=== PATIENT | female | born 1970 | race Two or more races ===

== ENCOUNTER → 2016-10-07 | Outpatient (CLI) | payer MEDICARE, MEDICAID ==
[~2016-10-07] MED LIST: BUSP10TA PO; DULO60CA7 PO; ESCI20TA10 PO; HYDR-926 PO; HYDR25TA PO; LAMO100T5 PO; LEVO50TA6 PO; METF500T4 PO; METF850T2 PO; OMEP40CA6 PO; PRAV40TA2 PO; QUET200T4 PO
--- NOTE | 2016-10-08 09:04 | DIREP ---
PROCEDURE:US PELVIS COMPLETE COMPARISON:None. INDICATIONS:N92.0 EXCESSIVE AND FREQUENT MENSTRUATION WITH REGULAR CYCLE TECHNIQUE:Pelvic ultrasound using transabdominal technique. Endovaginal images were also obtained for better assessment of the endometrium and adnexa Findings are summarized. FINDINGS: Uterus Uterus Length:10.1 Uterus Height:5.62 cm Uterus Width:6.62 cm Endometrium Thickness:6 mm Ovaries Right Ovary Width:1.50 cm Right Ovary Length:2.00 cm Right Ovary Height:1.10 cm Left Ovary Width:2.57 cm Left Ovary Length:3.69 cm Left Ovary Height:2.18 cm UTERUS:Unremarkable appearance. Incidental note of scattered nabothian cysts. There is a 2.3 x 2.0 x 2.0 cm posterior fundal fibroid. Endometrial thickness is normal. OVARIES:Normal bilateral appearance with no significant masses. Each ovary is normal in size for a patient of this age. There is a simple right ovarian cyst CUL-DE-SAC:Trace free fluid in the cul-de-sac. OTHER:Negative. CONCLUSION: Posterior fundal fibroid. Small volume of free fluid in the cul-de-sac Dictated by: Angela Solano M.D. on 10/08/2016 at 07:55 AM Read in [place]
== END | disposition home or self-care (01) ==
LOC: RAD 15:17
PROVIDERS: ATTEND Hospitalist
DX: D25.9 Leiomyoma of uterus, unspecified (principal)
CPT/HCPCS: 76830; 76856

== ENCOUNTER 2016-10-30 00:48 | Inpatient (IN) | payer MEDICARE, MEDICAID ==
[2016-10-29 11:45] VITALS: BP 114/78
[2016-10-29 12:40] LABS: BASOPHIL % 0.2 % (0.0-0.2); EOSINOPHIL # 0.3 10^3/uL (0.0-0.2); EOSINOPHIL % 3.6 % (0.0-5.0); HEMATOCRIT 35.1 % (36.0-46.0); HEMOGLOBIN 11.1 g/dL (12.0-15.0); LYMPHOCYTES # 2.2 10^3/uL (1.0-4.8); LYMPHOCYTES % 27.5 % (24.0-44.0); MEAN CELL HGB 25.2 pg (26-34); MEAN CELL HGB CONCENTRATION 31.6 g/dL (33-37); MEAN CORP VOLUME 79.6 fL (78-100); MEAN PLATELET VOLUME 7.9 fL (7.8-11.0); MONOCYTES # 0.5 10^3/uL (0.3-0.8); MONOCYTES % 6.7 % (5.0-12.0); NEUTROPHILS % 61.8 % (41.0-85.0); RED CELL DISTRIBUTION WIDTH 18.9 % (11.5-14.5)
[2016-10-29 13:02] LABS: BILIRUBIN,URINE NEGATIVE (NEGATIVE); UROBILINOGEN,URINE NORMAL (NEGATIVE)
[2016-10-29 13:11] LABS: APPEARANCE,URINE CLEAR (CLEAR); UA COLOR STRAW (YELLOW)
[2016-10-29 13:42] LABS: CARBON DIOXIDE 26.6 mmol/L (20.0-32)
[~2016-10-30] VITALS: Ht 162.6 cm; Wt 93.0 kg
[2016-10-30] VITALS (19 sets, daily range): BP systolic 87–117; BP diastolic 51–75
[~2016-10-30 00:48] MED LIST changes: +HYDR-3101 PO; +HYDR25CA PO; +LAMO200T3 PO; +LEVAQUIN 100 ML IV ONE; +LIRA0.6P2 SQ; +LURA40TA PO
[2016-10-30] MEDS ORDERED: LACTATED RINGERS 1,000 ML ONE ×2 (05:07→17:54)
[2016-10-30] MEDS ORDERED: LEVAQUIN 100 ML IV ONE ×2 (05:07→10:00)
[2016-10-30] MEDS ORDERED: ROCEPHIN ONE (05:08)
[2016-10-30] MEDS ORDERED: NS 100ML 100 ML IV ONE (05:09)
[2016-10-30] MEDS ORDERED: NS 1000ML 1,000 ML IV ONE (06:00)
[2016-10-30] MEDS ORDERED: ROCEPHIN 1,000 MG in NS 100ML 100 ML IV ONE (06:00)
[2016-10-30] MEDS ORDERED: NS 1000ML 1,000 ML ONE ×3 (06:14→10:11)
[2016-10-30] MEDS ORDERED: SODIUM CHLORIDE IR ONE (07:00)
[2016-10-30] MEDS ORDERED: ZEMURON IV ONE (07:07)
[2016-10-30] MEDS ORDERED: VERSED ONE (07:08)
[2016-10-30] MEDS ORDERED: ZOFRAN ONE (07:08)
[2016-10-30] MEDS ORDERED: DIPRIVAN IV ONE (07:09)
[2016-10-30] MEDS ORDERED: SUBLIMAZE ONE ×2 (07:09)
[2016-10-30] MEDS ORDERED: TORADOL ONE ×3 (07:10→21:49)
[2016-10-30] MEDS ORDERED: ASTRAMORPH-PF ONE (07:28)
[2016-10-30] MEDS ORDERED: ZOFRAN IV ONE (07:30)
[2016-10-30] MEDS ORDERED: NARCAN IV PRN (07:30)
[2016-10-30] MEDS ORDERED: SUBLIMAZE IV PRN (07:30)
[2016-10-30] MEDS ORDERED: NORCO 5 MG PO PRN (07:30)
[2016-10-30] MEDS ORDERED: EPHEDRINE SULFATE IV PRN (07:30)
[2016-10-30] MEDS ORDERED: ZOFRAN IV PRN ×2 (07:30→10:00)
[2016-10-30] MEDS ORDERED: TORADOL IV ONE (07:30)
[2016-10-30] MEDS ORDERED: BENADRYL IV PRN (07:30)
[2016-10-30] MEDS ORDERED: DEMEROL IV PRN ×2 (07:30→10:00)
[2016-10-30] MEDS ORDERED: NS IV PRN (07:30)
[2016-10-30] MEDS ORDERED: NUBAIN IV PRN (07:30)
[2016-10-30] MEDS ORDERED: DILAUDID IV PRN (10:00)
[2016-10-30] MEDS ORDERED: TYLENOL PO PRN (10:00)
[2016-10-30] MEDS ORDERED: MYLICON PO PRN (10:00)
[2016-10-30] MEDS ORDERED: ZOFRAN ODT SL PRN (10:00)
[2016-10-30] MEDS ORDERED: PHENERGAN IV PRN (10:00)
[2016-10-30] MEDS ORDERED: MILK OF MAGNESIA PO PRN (10:00)
[2016-10-30] MEDS ORDERED: NORCO 7.5MG PO PRN ×2 (10:00)
[2016-10-30] MEDS ORDERED: PHENERGAN PO PRN (10:00)
--- NOTE | 2016-10-30 10:04 | PRM.OPH ---
Immediate Post Op Note Summary of Operation Date: Oct 30, 2016 Time: 09:59 Pre-Operative DX: MENORRHAGIA, PELVIC PAIN, MULT MEDICAL PROBLEMS, FAILED ENDOMETRIAL ABLATIO Post-OP DX: SAME Anesth.Used: SPINAL + GETA Indications: TOTAL ABDOMINAL HYSTERECTOMY, BILATERAL SALPINGO-OOPHORECTOMY Physician's Summary: Enlargened, boggy, smoothly contoured uterus without any subserosal fibroids; ovaries small bilaterally; Fallopian tubes bilaterally with evidence of prior tubal ligation; thick bulky cervix Assistants: Listed Assisting Physicians PAVAN MUHAMMAD MD, NELLY KOHLER VETERINARY TECHNOLOGIST, OPHELIA RUTH CST Anesthesiologist/HYDROELECTRIC PLANT MECHANICAL ENGINEER BERNARD NORTON CRNA Specimen(s) Removed: List Specimen: UTERUS/CERVIX WITH BILATERAL ADNEXA (EN BLOC SPECIMEN) Estimated Blood Loss: EBL/ESTIMATED BLOOD LOSS: (MIL: 250 Complications: Complications: NONE Assessment & Plan: Update Surgical HX/Problems: (1) Status post ABNER-BSO Assessment & Plan: Routine post-op care. Pt has a Prevena wound vac dressing in place. KATHARINE GARY MD Oct 30, 2016 10:04
--- NOTE | 2016-10-30 10:45 | NUR ---
RECEIVED PT RECEIVED FROM PACU, AWAKE AND ALERT, ASSESSMENT COMPLETED, IV INFUSING PER PUMP IN RIGHT HAND WITHOUT DIFFICULTY, SCD'S IN PLACE BILATERALLY AND WORKING, PREVENA WOUND VAC IN PLACE, NO DRAINAGE NOTED, DENIES NEEDS AT THIS TIME,
--- NOTE | 2016-10-30 11:30 | NUR ---
STATUS SITTING UP IN BED, VISITING WITH FAMILY, DENIES NEEDS AT THIS TIME, COMFORTABLE AT THIS TIME
--- NOTE | 2016-10-30 12:00 | NUR ---
DIET PT SERVED CLEAR LIQUID DIET, CONSUMED 100% OF DIET AND TOLERATED. NO N/V NOTED
--- NOTE | 2016-10-30 13:00 | NUR ---
DR ABDIRAHMAN GARY IN TO SEE PT AND DISCUSS POC, QUESTIONS ANSWERED.
[2016-10-30] MEDS: TORADOL IV SCH ×2 (15:04→21:54)
--- NOTE | 2016-10-30 15:04 | NUR ---
PT RESTING QUIETLY IN BED. DENIES COMPLAINTS. TORADOL IV GIVEN. SEE EMAR.
[2016-10-30] MEDS: NOVOLOG SQ SCH ×2 (17:00→21:00)
--- NOTE | 2016-10-30 17:00 | NUR ---
status SITTING UP IN BED, SERVED REGULAR DIET, DENIES NEEDS AT THIS TIME
--- NOTE | 2016-10-30 17:53 | NUR ---
STATUS PT CONSUMED 100% OF REGULAR DIET NO N/V NOTED
[2016-10-30] MEDS: LACTATED RINGERS 1,000 ML IV SCH (17:55)
--- NOTE | 2016-10-30 18:45 | NUR ---
report Report received from Kaia ARZATE, Assumed care of patient
--- NOTE | 2016-10-30 19:15 | NUR ---
Assessment Assessment initiated
[2016-10-30] MEDS ORDERED: BENADRYL PO ONE (20:14)
[2016-10-30] MEDS ORDERED: BENADRYL ONE (20:16)
[2016-10-30] MEDS: BENADRYL IV PRN (20:18)
--- NOTE | 2016-10-30 21:20 | NUR ---
itching patient complained of itching, Benadryl given as ordered
--- NOTE | 2016-10-30 21:40 | NUR ---
Blood Glucose BG obtained at 125, no medication needed at this time per sliding scale
--- NOTE | 2016-10-30 21:54 | NUR ---
Tordol Scheduled Tordol 30mg given, no needs at this time
[2016-10-31 00:15] VITALS: BP 91/48
--- NOTE | 2016-10-31 00:15 | NUR ---
vs obtained denies needs or pain at this time
--- NOTE | 2016-10-31 01:00 | NUR ---
Dr Bedoya phoned Patient unable to sleep, New medication order received
[2016-10-31] MEDS ORDERED: PHENERGAN ONE (01:28)
[2016-10-31] MEDS ORDERED: ATARAX ONE ×2 (01:28→22:19)
[2016-10-31] MEDS ORDERED: BENADRYL ONE (01:33)
[2016-10-31] MEDS ORDERED: ATARAX PO ONE (01:57)
--- NOTE | 2016-10-31 02:00 | NUR ---
Medications given Phenergan 25mg given for Nausea Benadryl 25mg given for itching Hydroxyzine 25mg given for sleep, see emar
[2016-10-31] MEDS: BENADRYL IV PRN (02:03)
[2016-10-31] MEDS ORDERED: LACTATED RINGERS 1,000 ML ONE (02:25)
[2016-10-31] MEDS: LACTATED RINGERS 1,000 ML IV SCH (02:29)
--- NOTE | 2016-10-31 02:30 | NUR ---
New Bag of LR infusing without difficulty, iv site without s/s of infiltration
--- NOTE | 2016-10-31 03:16 | NUR ---
sleeping sleeping in low fowlers, resp even and nonlabored, call light in reach
--- NOTE | 2016-10-31 05:00 | NUR ---
lab her for blood draw
[2016-10-31] MEDS ORDERED: TORADOL ONE (05:08)
[2016-10-31] MEDS: TORADOL IV SCH (05:13)
[2016-10-31 05:30] VITALS: BP 95/52
--- NOTE | 2016-10-31 05:30 | NUR ---
patient care vs obtained, diaz removed with 1800cc of clear yellow urine, teaching given on using hat for first void Rocephin hung and infusing as ordered Last dose scheduled Tordol given Pericare done and assisted with pad and panties IS teaching given and patient return demonstrated proper use. encouraged to ambulate today.
[2016-10-31 05:44] LABS: BASOPHIL % 0.1 % (0.0-0.2); EOSINOPHIL # 0.1 10^3/uL (0.0-0.2); EOSINOPHIL % 1.6 % (0.0-5.0); HEMATOCRIT 29.4 % (36.0-46.0); HEMOGLOBIN 9.1 g/dL (12.0-15.0); LYMPHOCYTES % 14.6 % (24.0-44.0); MEAN CELL HGB 24.9 pg (26-34); MEAN CORP VOLUME 80.5 fL (78-100); MEAN PLATELET VOLUME 7.8 fL (7.8-11.0); MONOCYTES # 0.5 10^3/uL (0.3-0.8); MONOCYTES % 6.9 % (5.0-12.0); NEUTROPHIL # 5.2 10^3/uL (1.8-7.7); NEUTROPHILS % 76.7 % (41.0-85.0); RED CELL DISTRIBUTION WIDTH 19.2 % (11.5-14.5); WHITE BLOOD CELL 6.8 10^3/uL (4.5-11.0)
[2016-10-31] MEDS ORDERED: ROCEPHIN 1,000 MG in NS 100ML 100 ML IV ONE (06:00)
[2016-10-31 06:10] LABS: CALCIUM 7.4 mg/dL (8.4-10.5); CARBON DIOXIDE 23.8 mmol/L (20.0-32)
--- NOTE | 2016-10-31 07:00 | NUR ---
REPORT RECEIVED REPORT ASSUMED CARE, LAYING IN BED WATCHING TV, NO DISTRESS NOTED, DENIES NEEDS, SIDE RAILS UP X 2, CALL LIGHT IN REACH.
--- NOTE | 2016-10-31 07:35 | NUR ---
BATHROOM UP TO BATHROOM ASSIST X 1, UNABLE TO VOID AT THIS TIME, DRU CARE PER SELF, AMBULATED TO CHAIR. NO DISTRESS NOTED. DENIES NEEDS, CALL LIGHT IN REACH.
[2016-10-31 07:45] VITALS: BP 93/59
--- NOTE | 2016-10-31 07:45 | NUR ---
ASSESSMENT ASSESSMENT COMPLETE CHARTED, SEE FLOW SHEET.
[2016-10-31] MEDS: NOVOLOG SQ SCH ×4 (07:47→21:00)
[2016-10-31] MEDS ORDERED: MOTRIN ONE ×2 (08:13→16:30)
[2016-10-31] MEDS: MOTRIN PO PRN ×2 (08:16→16:35)
--- NOTE | 2016-10-31 09:48 | NUR ---
SHOWER/VOID UP TO BATHROOM, VOIDED 300 ML WITHOUT DIFFICULTY, DRU CARE PER SELF, IV SALINE LOCKED, UP TO SHOWER, INSTRUCTED ON USE OF EMERGENCY LIGHT, VERBALIZES UNDERSTANDING, IV WRAPPED, LINENS CHANGED.
[2016-10-31 12:00] VITALS: BP 95/55
--- NOTE | 2016-10-31 12:00 | NUR ---
ACTIVITY LAYING IN BED WATCHING TV, NO DISTRESS NOTED, VS OBTAINED, DENIES NEEDS, LUNCH TRAY SERVED, SIDE RAILS UP X 2, CALL LIGHT IN REACH.
--- NOTE | 2016-10-31 13:20 | NUR ---
AMBULATION UP AMBULATING IN HALLWAY, NO DISTRESS NOTED.
--- NOTE | 2016-10-31 13:31 | NUR ---
ROOM BACK TO BED, SCD'S IN PLACE AND WORKING, NO DISTRESS NOTED, DENIES NEEDS, SIDE RAILS UP X 2, CALL LIGHT IN REACH.
[2016-10-31 16:17] VITALS: BP 106/64
--- NOTE | 2016-10-31 16:17 | NUR ---
ACTIVITY LAYING IN BED WATCHING TV, NO DISTRESS NOTED, VS OBTAINED, SIDE RAILS UP X 2, CALL LIGHT IN REACH.
--- NOTE | 2016-10-31 18:18 | NUR ---
DR. ABDIRAHMAN GARY AT BEDSIDE DISCUSSING PLAN OF CARE.
--- NOTE | 2016-10-31 19:00 | PRM.DC ---
Discharge Summary Date of Arrival on Unit: Oct 29, 2016 Reason for Visit: HERE FOR ABNER/BSO Additional Comments Nikki is a 46yo Hisp female who underwent a Total Abdominal Hysterectomy and Bilateral Salpingo-oophorectomy on 10/29/2016 without complication. Blood loss was only 250cc's. Post-op course was unremarkable. She will be discharged home tomorrow Friday11/01/2016 in stable condition. Patient History: Anxiety disorder G8 BROTHER Chronic obstructive pulmonary disease 33 FATHER Diabetes mellitus 32 MOTHER, , Age:42 33 FATHER PATERNAL GRANDMOTHER, FH: bipolar disorder 32 MOTHER, , Age:42 G8 BROTHER 19 CHILD FH: colon cancer PATERNAL GRANDMOTHER, FH: schizophrenia G8 BROTHER FHx: manic depression 19 CHILD Hypertension 33 FATHER No known health problems G8 BROTHER G8 BROTHER 19 CHILD History Present Illness: General: Alert HEENT: Atraumatic Neck: Supple Lungs: Clear to auscultation Heart: Regular rate Abdomen: Normal bowel sounds, Other (Prevena wound vac working well) Extremities: No clubbing Skin: No rashes Neuro: Normal gait Psych/Mental Status: Mental status NL Scheduled Escitalopram Oxalate (Lexapro) 1 TAB PO DAILY (Reported) Hydrocodone Bit/Acetaminophen ([place] 7.5-325) 1 TAB PO Q6 (Reported) Hydroxyzine Hcl (Hydroxyzine Hcl) 1 TAB PO QID (Reported) Hydroxyzine Pamoate (Vistaril) 1 CAP PO Q6 (Reported) Lamotrigine (Lamictal) 1 TAB PO HS (Reported) Levothyroxine Sodium (Levothyroxine Sodium) 1 TAB PO DAILY (Reported) Liraglutide (Victoza 3-Santo) 1.2 MG SQ DAILY (Reported) Lurasidone Hcl (Latuda) 1 TAB PO HS (Reported) Metformin Hcl (Metformin Hcl) 1 TAB PO BID (Reported) Pravastatin Sodium (Pravastatin Sodium) 1 TAB PO HS (Reported) Discontinued Medications Hydrocodone Bit/Acetaminophen ([place] 5-325 Tablet) 1 EACH PO Q6HR PRN PRN PAIN 5 - 7 Discontinued Reason: Discontinue Lamotrigine (Lamictal) 1 TAB PO HS (Reported) Discontinued Reason: Discontinue Omeprazole (Omeprazole) 1 CAP PO DAILY (Reported) Discontinued Reason: Discontinue Quetiapine Fumarate (Seroquel) 1 TAB PO HS (Reported) Discontinued Reason: Discontinue Course Blood Pressure Systolic: 106 Blood Pressure Diastolic: 64 Blood Pressure Mean: 78 Plan Problems: (1) Status post ABNER-BSO Status: Acute ICD Code: Z90.710 SNOMED: [id number] Discharge Date: Nov 01, 2016 Dicharge DX: S/P ABNER/BSO Discharge Disposition: Stable Plan D/C home tomorrow Friday11/01/2016 KTAHARINE GARY MD Oct 31, 2016 19:00
--- NOTE | 2016-10-31 19:15 | NUR ---
REPORT Report received - Transfer of patient care. Patient lying in bed resting.
[2016-10-31] MEDS ORDERED: NORCO 7.5MG PO ONE (19:40)
[2016-10-31 20:03] VITALS: BP 104/65
[2016-10-31] MEDS ORDERED: BENADRYL PO ONE (22:19)
[2016-10-31] MEDS ORDERED: ATARAX PO STA (22:22)
--- NOTE | 2016-10-31 22:22 | NUR ---
Sleeping Med Patient requested medication to help her sleep - request the same medication as last night - 25 mg Benadryl given and 25 mg Atarax.
--- NOTE | 2016-11-01 00:44 | NUR ---
STATUS PT RESTING QUIETLY WITH EYES CLOSED, RESPIRATIONS EVEN AND UNLABORED, COLOR NORMAL FOR RACE, NO DISTRESS NOTED, PT TOOK SLEEPING MEDS, WILL NOT DISTURB AT THIS TIME. WILL CONTINUE TO MONITOR.
--- NOTE | 2016-11-01 02:04 | NUR ---
STATUS PT REMAINS IN BED, RESTING WITH EYES CLOSED, NO DISTRESS NOTED, WILL CONTINUE TO MONITOR.
[2016-11-01 04:48] VITALS: BP 105/70
--- NOTE | 2016-11-01 04:49 | NUR ---
STATUS PT LAYING SEMI FOWLERS IN BED, WATCHING TV, DENIES ANY NEEDS AT THIS TIME. CALL LIGHT WITHIN REACH.
[2016-11-01 07:00] VITALS: BP 116/75
--- NOTE | 2016-11-01 07:00 | NUR ---
BS AND VS TAKEN BS 98. VS AND FOOT DOCTOR COMPLETED.
[2016-11-01] MEDS ORDERED: NORCO 7.5MG PO ONE (07:12)
--- NOTE | 2016-11-01 07:20 | NUR ---
PAIN MED GIVEN NORCO 7.5 ONE PO GIVEN FOR PAIN 8/10.
[2016-11-01] MEDS: NOVOLOG SQ SCH ×2 (07:30→12:00)
--- NOTE | 2016-11-01 07:30 | NUR ---
BKF TRAY SERVED. ICE WATER SERVED.
[2016-11-01 09:29] VITALS: BP 116/75
--- NOTE | 2016-11-01 10:30 | NUR ---
DISCHARGE INSTRUCTIONS GIVEN VOICES UNDERSTANDING. ALL QUESTIONS ANSWERED. WILL RESUME ALL HOME MEDS AND ALREADY HAS NORCO RX AT HOME. WILL WAIT FOR FAMILY TO COME TO PICK HER UP. DENIES PAIN OR NEEDS AT THIS TIME.
--- NOTE | 2016-11-01 12:00 | NUR ---
STATUS PT WAITING FOR RIDE HOME. BS CHECK IS DUE. 128. NO ACTION NEEDED. LUNCH SERVED. DENIES PAIN OR NEEDS.
[2016-11-01] MEDS ORDERED: BENADRYL PO SCH (21:00)
== END 2016-11-01 13:02 | disposition home or self-care (01) | DRG 743 ==
LOC: LND 00:48
PROVIDERS: ADMIT Hospitalist; ATTEND Hospitalist
PROC: 0UTC0ZZ Resection of Cervix, Open Approach (ICD-10-PCS; 2016-10-30)
PROC: 0UT20ZZ Resection of Bilateral Ovaries, Open Approach (ICD-10-PCS; 2016-10-30)
PROC: 0UT70ZZ Resection of Bilateral Fallopian Tubes, Open Approach (ICD-10-PCS; 2016-10-30)
PROC: 0UT90ZZ Resection of Uterus, Open Approach (ICD-10-PCS; principal; 2016-10-30 07:30)
DX: N92.0 Excessive and frequent menstruation with regular cycle (principal); R10.2 Pelvic and perineal pain; Z82.5 Family history of asthma and other chronic lower respiratory diseases; Z83.3 Family history of diabetes mellitus; Z81.8 Family history of other mental and behavioral disorders; Z84.89 Family history of other specified conditions; Z79.899 Other long term (current) drug therapy
CPT/HCPCS: 36415; 80053; 81002; 82948; 83036; 84439; 84443; 84481; 84703; 85025; 85610; 85730; 86900; 93005; A4338; J0696; J1200; J1885; J1956; J2250; J2405; J2550; J3010; J3490; J7030; J7120; Q0163; 81025; J2274

== ENCOUNTER → 2017-01-21 | Outpatient (CLI) | payer MEDICARE, MEDICAID ==
[~2017-01-21] VITALS: Ht 162.6 cm; Wt 93.0 kg
[~2017-01-21] MED LIST changes: -LEVAQUIN 100 ML IV ONE; +LEXISCAN IV ONE
--- NOTE | 2017-01-23 09:41 | ECHO ---
INDICATION: A 47-year-old lady with chest pain, elected for an echocardiographic study. FINDINGS: 1. Study quality was good. 2. Sinus rhythm. 3. LV function preserved around 60%. LV dimension normal at 3.3 cm end- diastolic dimension. No visible masses or clots. No visible wall motion abnormality. 4. RV size and EF were normal. 5. Trace pulmonic insufficiency noted. 6. Mitral valve examination showed no evidence of regurgitation, no stenosis. Diastolic parameters by Doppler signal exam were normal. Mitral valve mean gradient by Doppler exam was 1.1 mmHg. 7. Mild tricuspid regurgitation. Pulmonary artery systolic pressure was 25 mmHg. 8. Prominent pericardial fat pad was noted with trace amount of pericardial effusion, no tamponade. 9. Aortic valve showed mild regurgitation. No significant aortic stenosis. Doppler signal exam across the aortic valve estimated a mean velocity of 0.8 m/ sec. Normal with an aortic valve area ____ noted to be around 4 cm2. 10. Inferior vena cava was not visualized. 11. Septal thickness 1 cm. Pamela Bui MD,[facility]ERIC TD: 01/22/2017 21:48 CLAUS
--- NOTE | 2017-01-24 15:07 | STRESS ---
PROCEDURE: Stress test with nuclear imaging study. INDICATION: A 47-year-old lady with typical symptoms of chest pain and shortness of breath, new-onset symptoms. The patient has a strong family history of coronary artery disease. She had history of diabetes mellitus and hyperlipidemia. The patient presented to the stress lab in a fasting condition and signed a proper consent. Baseline blood pressure was 110/84, heart rate of 84. EKG showed sinus rhythm with low voltage QRS complexes, otherwise no ischemia. The patient was injected with 0.4 mg of regadenoson followed by the stress dose of technetium sestamibi. One minute post infusion, blood pressure was 95/72, heart rate of 145, sinus tachycardia. The patient developed symptoms of dizziness, but no chest pain, no shortness of breath. EKG changes of ischemia were partially noted during the tachycardic phase of the hemodynamic response. Five-minute post infusion, blood pressure was 108/73 , heart rate of 99, ischemic changes on the EKG result, the patient remained asymptomatic. Myocardial perfusion imaging study was performed using technetium sestamibi in same day rest stress protocol showing the followin. Study quality was fair. 2. Attenuation artifact corrected. 3. Prone position was available. 4. Myocardial LV cavity was stable, no evidence of TID. 5. SPECT perfusion images showed homogenous tracer distribution among the different myocardial segments. No perfusion defects of ischemia or scarring noted. 6. Gated function study showed normal wall motion with thickening, EF was 70%, stroke volume 31 mL. Small area of anterior wall dyskinesia was seen. IMPRESSION: 1. Abnormal EKG finding on the stress portion of Lexiscan with tachycardia and ST changes ischemia. 2. The patient remained asymptomatic, no chest pain or shortness of breath. 3. Recovery phase was uneventful. 4. No arrhythmia seen. 5. Myocardial perfusion study was normal. No perfusion defect of ischemia or scarring. 6. Gated function study showed mild anterior wall dyskinesia, otherwise normal EF at 70% with no other wall motion abnormality. 7. Given the abnormality on the EKG during the stress portion, clinical correlation is recommended, otherwise, the stress test shows low risk features. Pamela Bui MD,[facility] CAR[facility]/DARNELL TD: 01/24/2017 14:02 [facility]CHESTERDorothy
== END | disposition home or self-care (01) ==
LOC: RAD 09:47
PROVIDERS: ATTEND Internal Medicine
DX: I08.2 Rheumatic disorders of both aortic and tricuspid valves (principal); I31.3 Pericardial effusion (noninflammatory); J98.4 Other disorders of lung
CPT/HCPCS: 78452; 93017; 93307; A9500; J2785

== ENCOUNTER 2017-02-24 10:31 | Inpatient (IN) | payer MEDICARE, MEDICAID ==
[~2017-02-24] VITALS: Ht 162.6 cm; Wt 88.5 kg
--- NOTE | 2017-02-24 10:00 | NUR ---
ARRIVAL PT ARRIVED TO [facility] 311 AT THIS TIME. DIRECT ADMIT FROM DR. PABLO OFFICE
[2017-02-24 10:30] VITALS: BP 109/79
--- NOTE | 2017-02-24 10:30 | NUR ---
ASSESSMENT ASSESSMENT COMPLETE AT THIS TIME. PT SITTING UP IN BED. DENIES ANY PAIN OR DISCOMFORT. LUNGS CTA. RESPIRATIONS EVEN AND NONLABORED. ABD SOFT AND NONDISTENDED. BOWEL SOUNDS ACTIVE X4. NO SWELLING NOTED TO BLE. RADIAL AND PEDAL PULSES PRESENT AND WNL. ALL NEEDS MET. CALL LIGHT WITHIN REACH.
[~2017-02-24 10:31] MED LIST changes: -LEXISCAN IV ONE
[2017-02-24] MEDS ORDERED: AMBIEN PO PRN (11:00)
[2017-02-24] MEDS ORDERED: ZOFRAN IV PRN (11:00)
--- NOTE | 2017-02-24 11:39 | PRM.ACF1 ---
Date and Time Date and Time Time: 11:12 Admission Criteria Forms Patient is a 47-year-old female who had Myranda/Echo last week with dizziness and near-syncope on stress test. History of NIDDM, hyperlipidemia, bipolar and depression, and a "heart valve problem" (NOS), She reports that over the weekend, she was awakened both nights from sleep with a chest pain, which she indicates is upper midsternal with radiation to the right arm and jaw. She described this as "cramping" with tingling in her right hand. She reports nausea but no vomiting at that time. At this time, patient also states she has not had a bowel movement for "over a week." On direct admission from Dr. Crystal's office this morning, the patient is alert, oriented, supine on bed. She reports similar cramping-like pain to upper midsternal area and right shoulder, slight nausea. States the pain is made worse on her palpating the area. Reports slight shortness of breath but no dyspnea. Admitted to Room 311. Nurse started IV saline lock, left forearm. EKG performed showing NSR with low amplitude. Lab in room to draw. Admission vitals: T 97.9 , 109/79, 109, 93% on room air. Per Dr. Crystal, patient is to have heart catheterization 02/25/17. ARCENIO SEQUEIRA NP Feb 24, 2017 11:39
[2017-02-24 11:58] LABS: ALANINE AMINOTRANSFERASE 14 U/L (12-78); ALKALINE PHOSPHATASE 91 U/L (50-136); ASPARTATE AMINO TRANSFERASE 15 U/L (0-35); CALCIUM 9.2 mg/dL (8.4-10.5); CARBON DIOXIDE 26.1 mmol/L (20.0-32); GLUCOSE 94 mg/dL (70-110)
--- NOTE | 2017-02-24 13:32 | PRM.PN ---
Subjective Subjective Patient History: Anxiety disorder G8 BROTHER Chronic obstructive pulmonary disease 33 FATHER Diabetes mellitus 32 MOTHER, , Age:42 33 FATHER PATERNAL GRANDMOTHER, FH: bipolar disorder 32 MOTHER, , Age:42 G8 BROTHER 19 CHILD FH: colon cancer PATERNAL GRANDMOTHER, FH: schizophrenia G8 BROTHER FHx: manic depression 19 CHILD Hypertension 33 FATHER No known health problems G8 BROTHER G8 BROTHER 19 CHILD VTE VTE Risk Total Score: 3 VTE Risk Score VTE Risk: Score 0-1 = Low Risk (Aggressive mobilization; early ambulation; no VTE prophylaxis required) Score 2: Moderate Risk (Intermittent/Pneumatic Compression Device OR Lovenox/Heparin/Coumadin) Score 3-4: High Risk (Intermittent/Pneumatic Compression Device AND Lovenox/Heparin/Coumadin) Score > or =5: Highest Risk (Intermittent/Pneumatic Compression Device AND Lovenox/Heparin/Coumadin) Review of Systems Constitutional: Sweats Eyes: No: Pain, Vision change, Conjunctivae inflammation, Eyelid inflammation, Other, Redness ENT: No: Ear pain, Ear discharge, Nose pain, Nose discharge, Nose congestion, Mouth pain, Mouth swelling, Throat pain, Throat swelling, Other Respiratory: Shortness of breath, No: Cough, Dry, SOB with excertion, Wheezing , Hemoptysis, Pleuritic Pain, Sputum, Wheezing, Other Cardiovascular: Chest Pain, Lt Headedness Gastrointestinal: Nausea Genitourinary: Dysuria Musculoskeletal: No: other, neck pain, shoulder pain, arm pain, back pain, hand pain, leg pain, foot pain Skin: No: Rash, Lesions, Jaundice, Bruising, Other Other Allergies: Coded Allergies: No Known Allergies (Unverified , 10/29/16) Scheduled Escitalopram Oxalate (Lexapro), 1 TAB PO DAILY, (Reported) Hydrocodone Bit/Acetaminophen ([place] 7.5-325), 1 TAB PO Q6, (Reported) Hydroxyzine Pamoate (Vistaril), 1 CAP PO Q6, (Reported) Lamotrigine (Lamictal), 1 TAB PO HS, (Reported) Levothyroxine Sodium (Levothyroxine Sodium), 1 TAB PO DAILY, (Reported) Liraglutide ([place]ictoza 3-Santo), 1.2 MG SQ DAILY, (Reported) Lurasidone Hcl (Latuda), 1 TAB PO HS, (Reported) Metformin Hcl (Metformin Hcl), 1 TAB PO BID, (Reported) Pravastatin Sodium (Pravastatin Sodium), 1 TAB PO HS, (Reported) Objective Vitals and I/O Vital Sign - Last 24 Hours 02/24/17 10:30 Temp 97.9 Pulse 83 Resp 18 B/P (MAP) 109/79 (89) Pulse Ox 93 Medication Reconciliation Scheduled Escitalopram Oxalate (Lexapro), 1 TAB PO DAILY, (Reported) Hydrocodone Bit/Acetaminophen ([place] 7.5-325), 1 TAB PO Q6, (Reported) Hydroxyzine Pamoate (Vistaril), 1 CAP PO Q6, (Reported) Lamotrigine (Lamictal), 1 TAB PO HS, (Reported) Levothyroxine Sodium (Levothyroxine Sodium), 1 TAB PO DAILY, (Reported) Liraglutide ([place]ictoza 3-Santo), 1.2 MG SQ DAILY, (Reported) Lurasidone Hcl (Latuda), 1 TAB PO HS, (Reported) Metformin Hcl (Metformin Hcl), 1 TAB PO BID, (Reported) Pravastatin Sodium (Pravastatin Sodium), 1 TAB PO HS, (Reported) Assessment/Plan Assessment/Plan Patient History: Anxiety disorder G8 BROTHER Chronic obstructive pulmonary disease 33 FATHER Diabetes mellitus 32 MOTHER, , Age:42 33 FATHER PATERNAL GRANDMOTHER, FH: bipolar disorder 32 MOTHER, , Age:42 G8 BROTHER 19 CHILD FH: colon cancer PATERNAL GRANDMOTHER, FH: schizophrenia G8 BROTHER FHx: manic depression 19 CHILD Hypertension 33 FATHER No known health problems G8 BROTHER G8 BROTHER 19 CHILD History of Present Illness Reason for Consultation: Abnormal stress test History of Present Illness C: Patient had stress test several weeks prior with dizziness and near-syncope during test. She also reports in office that she has had episodes of midsternal chest pain with radiation to left shoulder and left neck area, some diaphoresis and nausea, tingling in left hand. Two nights, this pain woke her in sleep. She also reports some shortness of breath but no dyspnea at that time. On arrival to Med/Surg 311, she reports having midsternal chest pain that she describes as "cramping, pressure" without indication of radiation, and without diaphoresis or nausea. H: Patient has a history of bipolar depression, NIDDM, hyperlipidemia, hypothyroidism. Past Medical History Cardiovascular: CAD GI: Constipation Psychiatric: Anxiety, Depression Rheumatologic: Fibromyalgia Endocrine: Diabetes Past Surgical History: Cholecystectomy, Other Past Social History Smoke: Quit Alcohol: none Drugs: None Domestic Violence: Neg Health Maintenance: Cholesteral Travel Hx EBOLA RISK:Travel to/contact w: No Is pt experiencing any Ebola s: No ARCENIO SEQUEIRA NP Feb 24, 2017 13:32
[2017-02-24] MEDS: NOVOLIN R SUBCUT SCH ×2 (14:17→19:01)
[2017-02-24] MEDS ORDERED: COLACE PO STA (14:20)
[2017-02-24] MEDS: COLACE PO SCH ×2 (14:30→20:39)
[2017-02-24] MEDS: NS 1000ML 1,000 ML IV SCH ×2 (14:52→22:42)
[2017-02-24 16:30] VITALS: BP 92/58
[2017-02-24] MEDS ORDERED: NORCO 7.5MG PO SCH (18:00)
[2017-02-24] MEDS ORDERED: ATARAX PO PRN (18:00)
--- NOTE | 2017-02-24 18:45 | NUR ---
REPORT REPORT GIVEN TO ONCOMING SHIFT AND CARE RELINQUISHED
[2017-02-24 19:40] VITALS: BP 87/57
--- NOTE | 2017-02-24 20:23 | NUR ---
orco 7.5/325 po x1 given for pain 01/20
[2017-02-24] MEDS ORDERED: NORCO 7.5MG PO PRN (20:30)
[2017-02-24] MEDS: LOVENOX SQ SCH (20:39)
[2017-02-24] MEDS ORDERED: LAMICTAL PO SCH (21:00)
[2017-02-24] MEDS ORDERED: LIPITOR PO SCH (21:00)
[2017-02-25 01:59] VITALS: BP 103/65
[2017-02-25 03:51] VITALS: BP 90/52
[2017-02-25] MEDS ORDERED: SYNTHROID PO SCH (06:30)
--- NOTE | 2017-02-25 06:41 | NUR ---
REPORT RECEIVED REPORT FROM NATALI GIBSON LVN ASSUMED CARE OF PATIENT
[2017-02-25] MEDS ORDERED: SUBLIMAZE ONE (06:44)
[2017-02-25] MEDS ORDERED: CALAN ONE (06:44)
[2017-02-25] MEDS ORDERED: HEPARIN ONE (06:44)
[2017-02-25] MEDS ORDERED: XYLOCAINE ONE (06:45)
[2017-02-25] MEDS ORDERED: NITROGLYCERIN 25MG/D5W 250ML 250 ML IV ONE (06:45)
[2017-02-25] MEDS ORDERED: VERSED ONE (06:45)
[2017-02-25] MEDS: NOVOLIN R SUBCUT SCH ×2 (08:00→12:00)
[2017-02-25] MEDS ORDERED: PROTONIX PO SCH (09:00)
[2017-02-25] MEDS ORDERED: CELEXA PO SCH (09:00)
[2017-02-25] MEDS: COLACE PO SCH (09:08)
[2017-02-25] MEDS: LOVENOX SQ SCH (09:08)
[2017-02-25 09:11] VITALS: BP 106/73
--- NOTE | 2017-02-25 10:55 | PRM.PN ---
Progress Note Subjective Date: Feb 25, 2017 Time: 10:15 Physician Notes: Consent for heart cath obtained, explaining risks, benefits, and general procedure to patient. She had no questions, although her father did ask about access and time involved. His phone number added to face sheet of chart. Objective Review IO, Exams,& Results Vital Signs Date Time Temp Pulse Resp B/P (MAP) Pulse Ox O2 Delivery O2 Flow Rate FiO2 02/25/17 09:54 Room Air 02/25/17 09:11 97.5 79 18 106/73 (84) 98 Intake and Output 02/25/17 07:00 Intake Total 1180 ml Output Total 450 ml Balance 730 ml Intake Oral 1180 ml Output Urine Total 450 ml # Voids 4 Laboratory Tests Test 02/24/17 11:20 02/24/17 17:05 02/24/17 23:00 Sodium Level 138 mmol/L Potassium Level 3.9 mmol/L Chloride Level 103.0 mmol/L Carbon Dioxide Level 26.1 mmol/L Anion Gap 12.8 Blood Urea Nitrogen 6 mg/dL Creatinine 0.90 mg/dL Estimated GFR () 81.9 BUN/Creatinine Ratio 6.0 Glucose Level 94 mg/dL Calcium Level 9.2 mg/dL Total Bilirubin 0.3 mg/dL Aspartate Amino Transf (AST/SGOT) 15 U/L Alanine Aminotransferase (ALT/SGPT) 14 U/L Alkaline Phosphatase 91 U/L Creatine Kinase MB 0.0 ng/mL 0.0 ng/mL 0.0 ng/mL Troponin I < 0.02 ng/mL < 0.02 ng/mL < 0.02 ng/mL Total Protein 7.3 g/dL Albumin 3.7 g/dL Globulin 3.6 Current Medications Medications (Trade) Dose Ordered Sig/Drake PRN Reason Start Time Stop Time Status Last Admin Acetaminophen/ Hydrocodone Bitart ([place] 7.5mg) 1 each Q6HR PRN PAIN 02/24/17 20:30 03/26/17 20:29 02/24/17 20:23 Atorvastatin Calcium (Lipitor) 20 mg HS 02/24/17 21:00 03/26/17 20:59 02/24/17 20:39 Citalopram Hydrobromide (Celexa) 40 mg DAILY 02/25/17 09:00 03/27/17 08:59 02/25/17 09:08 Docusate Sodium (Colace) 100 mg BID 02/24/17 14:30 03/26/17 14:29 02/25/17 09:08 Enoxaparin Sodium (Lovenox) 80 mg BID 02/24/17 21:00 03/26/17 20:59 02/25/17 09:08 Hydroxyzine HCl (Atarax) 25 mg Q6 PRN 02/24/17 18:00 03/26/17 17:59 Insulin Human Regular (Novolin R) Y TIDM 02/24/17 12:00 03/26/17 11:59 Lamotrigine (Lamictal) 200 mg HS 02/24/17 21:00 03/26/17 20:59 02/24/17 20:39 Levothyroxine Sodium (Synthroid) 50 mcg ACB 02/25/17 06:30 03/27/17 06:29 Magnesium Citrate (Magnesium Citrate) 300 ml OT 02/25/17 16:00 03/27/17 15:59 Ondansetron HCl (Zofran) 4 mg Q4H PRN NAUSEA / VOMITING 02/24/17 11:00 03/26/17 10:59 Pantoprazole Sodium (Protonix) 40 mg DAILY 02/25/17 09:00 03/27/17 08:59 02/25/17 09:07 Sodium Chloride 1,000 ml @ 80 mls/hr [id number] 02/24/17 11:00 03/26/17 10:59 02/24/17 22:42 Zolpidem Tartrate (Ambien) 10 mg HS PRN INSOMNIA 02/24/17 11:00 03/26/17 10:59 Orders - ARCENIO SEQUEIRA NP Docusate Sodium (Colace) (02/24/17 14:30) Magnesium Citrate (Magnesium Citrate) (02/25/17 16:00) Heart: Regular rate Abdomen: Normal bowel sounds, Other Lungs: Clear to auscultation Assessment & Plan: Plan Plan to proceed with heart cath as consented. ARCENIO SEQUEIRA NP Feb 25, 2017 10:55
--- NOTE | 2017-02-25 11:22 | NUR ---
DISCHARGE PLANNING: SS VISITED WITH PT REGARDING DISCHARGE PLANNING. PT LIVES HOME WITH HER SON. PT STATED SHE IS DISABLED AND ON DISABILITY. PT DOES NOT USE ANY DME, BUT WOULD LIKE TO HAVE HH COME IN AND ASSIST WITH HH CARE NEEDS, AND FINDING A PROVIDER TO COME IN AND ASSIST WITH CHORES AROUND THE HOME SHE IS UNABLE TO DO. CHOICE LETTER, PRESENTED, SIGNED AND PLACED INTO PT'S CHART FOR [facility]. SS NOTIFIED JUAN M WITH [facility] REGARDING REFERRAL. NO FURTHER NEEDS NOTED OR IDENTIFIED AT THIS TIME. PT SAFETY HANDOUT ADDRESSED, NO QUESTIONS ASKED, UNDERSTANDING VERBALIZED. SS TO CONTINUE TO FOLLOW AND MONITOR DISCHARGE PLANNING NEEDS.
[2017-02-25] MEDS ORDERED: NS FLUSH ONE (11:57)
[2017-02-25] MEDS: NS 1000ML 1,000 ML IV SCH (12:00)
[2017-02-25] MEDS ORDERED: NORCO 5 MG PO PRN (13:30)
[2017-02-25] MEDS ORDERED: NS 1000ML 1,000 ML IV SCH (13:30)
--- NOTE | 2017-02-25 15:46 | PRM.DC ---
Discharge Summary Date of Arrival on Unit: Feb 24, 2017 Reason for Visit: Coronary artery disease Additional Comments 47-year-old lady with multiple coronary arteries factors including hypertension , hyperlipidemia, diabetes mellitus, has been experiencing symptoms of near syncope and angina. She had an abnormal stress test performed in December 2016. Was admitted with progressive angina symptoms and multiple episodes of near syncope specially after adjustment of blood pressure medications. Coronary angiography was performed for obstructive disease especially with abnormal stress test performed successfully on 02/25/2017via right radial artery access showing no obstructive disease, with. normal ejection fraction. Post cardiac cath recovery phase was uneventful. Patient was indicated results of coronary angiography and adjusted on medical management Patient History: Anxiety disorder G8 BROTHER Chronic obstructive pulmonary disease 33 FATHER Diabetes mellitus 32 MOTHER, , Age:42 33 FATHER PATERNAL GRANDMOTHER, FH: bipolar disorder 32 MOTHER, , Age:42 G8 BROTHER 19 CHILD FH: colon cancer PATERNAL GRANDMOTHER, FH: schizophrenia G8 BROTHER FHx: manic depression 19 CHILD Hypertension 33 FATHER No known health problems G8 BROTHER G8 BROTHER 19 CHILD History Present Illness: General: Alert HEENT: Atraumatic Neck: Supple Lungs: Clear to auscultation Heart: Regular rate Abdomen: Normal bowel sounds Extremities: No clubbing, No cyanosis ( right radial artery access site was free of complications) Skin: No rashes Scheduled Escitalopram Oxalate (Lexapro), 1 TAB PO DAILY, (Reported) Hydrocodone Bit/Acetaminophen ([place] 7.5-325), 1 TAB PO Q6, (Reported) Hydroxyzine Pamoate (Vistaril), 1 CAP PO Q6, (Reported) Lamotrigine (Lamictal), 1 TAB PO HS, (Reported) Levothyroxine Sodium (Levothyroxine Sodium), 1 TAB PO DAILY, (Reported) Liraglutide (Victoza 3-Santo), 1.2 MG SQ DAILY, (Reported) Lurasidone Hcl (Latuda), 1 TAB PO HS, (Reported) Metformin Hcl (Metformin Hcl), 1 TAB PO BID, (Reported) Pravastatin Sodium (Pravastatin Sodium), 1 TAB PO HS, (Reported) Sepsis Evaluation @ Discharge Course Blood Pressure Systolic: 106 Blood Pressure Diastolic: 73 Blood Pressure Mean: 84 Plan Assessment - abnormal stress test - angina pectoris, no obstructive CAD noted on Cath - diabetes mellitus - hypertension - hyperlipidemia - coronary angiography performed on 02/25/2017 showed normal coronaries, free of obstructive disease. - normal ejection fraction Discharge Disposition: Stable Plan - continue all medications - optimize risk factor control - cardiac cath discharge instructions - TR band protocol - outpatient follow-up with PCP and cardiology ROMINA PABLO MD Feb 25, 2017 15:46
[2017-02-25] MEDS ORDERED: MAGNESIUM CITRATE PO SCH (16:00)
--- NOTE | 2017-02-25 18:27 | [facility] ---
DATE OF SERVICE: 02/25/2017 PROCEDURES PERFORMED: 1. Left heart catheterization via right radial artery access. 2. Selective coronary angiography, left and right. COMPLICATIONS: None. BLOOD LOSS: Minimal, less than 15 mL. INDICATIONS: 1. Abnormal stress test performed on 01/21/2017. 2. Active angina symptoms. 3. Multiple risk factors for coronary artery disease including diabetes mellitus and hypertension. 4. Family history of coronary artery disease. 5. Atypical symptoms of presentation including near syncope and significant dizziness. HISTORY OF PRESENT ILLNESS: The patient is a 47-year-old diabetic lady with hypertension, hyperlipidemia, family history of coronary artery disease. She was examined due to progressive symptoms of angina and near syncope on 01/21/2017 with a stress test that showed abnormal stress portion with ST changes of ischemia. The patient reports worsening symptoms. Therefore, she was admitted to manage unstable angina with abnormal stress test. DESCRIPTION OF PROCEDURE: Proper consent was obtained. Risks and benefits were explained. All questions were answered. Lab results were reviewed including negative cardiac enzymes. Therefore, the patient was taken to the [facility] for coronary angiography. Right wrist area was prepped and draped and sterilized with accordance to the normal protocol followed by advancing a 6-Tajik sheath to the right radial artery without difficulty. A 6-Tajik Phenix catheter was utilized to engage the left coronary system and JL4 was the guide of choice to engage the RCA. No LV gram was performed. After careful examination of coronary angiography, case was concluded with removal of wires and catheters and application of 6-Tajik TR band in the right radial artery access site for hemostasis. The patient tolerated the procedure well and left the [facility] in stable condition without complications. I have explained the details of the coronary angiography and angiographic findings to the patient. HEMODYNAMICS: Opening pressure of 106/70, mean of 80 mmHg. ANGIOGRAPHIC FINDINGS: Coronary angiography: 1. Left main is a short vessel, free of disease, normal in diameter. 2. LAD is tortuous vessel with minimal luminal irregularity in the distal segment, otherwise free of disease. The first diagonal branch is a small, tortuous vessel, second and third are very small vessels, diagonals. 3. The circumflex artery is a medium size nondominant vessel, free of disease, gives rise to multiple small obtuse marginal branches, which are free of disease as well. 4. RCA is a large dominant vessel, free of disease, mildly tortuous, tapers down distally into small RPDA and PLV branches, which are dominant in distribution and free of disease. IMPRESSION: 1. Normal left main. 2. Dominant RCA, free of disease, normal in size. 3. Minimal luminal irregularity in the distal LAD. 4. Small nondominant circumflex artery. 5. The procedure was well tolerated without complications. RECOMMENDATIONS: 1. TR band protocol. 2. Optimize risk factor modification for coronary artery disease. 3. Consider noncoronary causes for chest pain and angina. 4. Optimize management of hypertension. 5. Okay for same day discharge to follow up as an outpatient once other comorbidities has been treated successfully. Pamela Bui MD DR: PAUL/cathy JOB# [id number]
--- NOTE | 2017-02-26 08:34 | NUR ---
[facility]: SS FAXED OVER UPDATED DISCHARGE PAPER WORK AND LET [facility] KNOW SHE WAS DISCHARGED YESTERDAY. JONI STATED THEY WOULD GET PT SET UP TODAY
== END 2017-02-25 16:46 | disposition home health service (06) | DRG 287 ==
LOC: MS 10:31
PROVIDERS: ADMIT Internal Medicine; ATTEND Internal Medicine
PROC: 4A023N7 Measurement of Cardiac Sampling and Pressure, Left Heart, Percutaneous Approach (ICD-10-PCS; principal; 2017-02-25)
PROC: B2111ZZ Fluoroscopy of Multiple Coronary Arteries using Low Osmolar Contrast (ICD-10-PCS; 2017-02-25)
DX: I25.110 Atherosclerotic heart disease of native coronary artery with unstable angina pectoris (principal); I10 Essential (primary) hypertension; E03.9 Hypothyroidism, unspecified; F31.9 Bipolar disorder, unspecified; E11.9 Type 2 diabetes mellitus without complications; E78.5 Hyperlipidemia, unspecified; F41.9 Anxiety disorder, unspecified; M79.7 Fibromyalgia; R55 Syncope and collapse; Z82.49 Family history of ischemic heart disease and other diseases of the circulatory system; Z90.49 Acquired absence of other specified parts of digestive tract; Z79.84 Long term (current) use of oral hypoglycemic drugs; Z87.891 Personal history of nicotine dependence; Z83.3 Family history of diabetes mellitus; Z82.5 Family history of asthma and other chronic lower respiratory diseases; Z80.8 Family history of malignant neoplasm of other organs or systems; Z81.8 Family history of other mental and behavioral disorders
CPT/HCPCS: 36415; 80053; 82553; 82948; 84484; 93005; 93454; 99152; 99153; C1769; C1887; C1894; J1644; J1650; J2250; J3010; J3490; J7030; Q9967

== ENCOUNTER 2017-07-08 16:35 | Emergency (ER) | payer MEDICARE, MEDICAID ==
[~2017-07-08] VITALS: Ht 162.6 cm; Wt 71.7 kg
--- NOTE | 2017-07-08 16:49 | NUR ---
ARRIVAL PT ARRIVED AMBULATORY TO ER 5 C/O "DIFFICULTY SWALLOWING" FOR 1 MONTH. PT STATES WAS SEEN BY URGENT CARE LAST WEEK AND TESTED NEGATIVE FOR STREP AND TOLD TO FOLLOW UP WITH HER PRIMARY CARE PROVIDER SCHEDULED ON 07/17/17. NO ACUTE DISTRESS NOTED. EDP NOTIFIED OF PT ARRIVAL.
--- NOTE | 2017-07-08 18:06 | ER.PDOC ---
General Chief Complaint: Sore Throat Stated Complaint: DIFFICULTIES SWALLOWING TRAVEL OUT OF US: No Time seen by MD: 17:27 Source: patient Exam Limitations: no limitations History of Present Illness Initial Comments sore throat Timing/Duration: changing over time Severity: mild Associated Symptoms: denies symptoms Allergies: Coded Allergies: No Known Allergies (Unverified , 10/29/16) Home Meds Reported Medications Lurasidone Hcl (LATUDA) 40 Mg Tablet, 1 TAB PO HS, #30 TAB 1 Refill 10/29/16 Liraglutide (VICTOZA 3-SAUL) 0.6 Mg/0.1 Ml Pen.injctr, 1.2 MG SQ DAILY, #9 MILLILITER 3 Refills 10/29/16 Hydrocodone Bit/Acetaminophen (NORCO 7.5-325) 1 Each Tablet, 1 TAB PO Q6, #120 TAB 10/29/16 Hydroxyzine Pamoate (VISTARIL) 25 Mg Capsule, 1 CAP PO Q6, #60 CAP 1 Refill 10/29/16 Lamotrigine (LAMICTAL) 200 Mg Tablet, 1 TAB PO HS, #30 TAB 1 Refill 10/29/16 Pravastatin Sodium (PRAVASTATIN SODIUM) 40 Mg Tablet, 1 TAB PO HS, #90 TAB 1 Refill 10/19/15 Levothyroxine Sodium (LEVOTHYROXINE SODIUM) 50 Mcg Tablet, 1 TAB PO DAILY, #30 TAB 5 Refills 10/19/15 Metformin Hcl (METFORMIN HCL) 850 Mg Tablet, 1 TAB PO BID, #60 TAB 5 Refills 10/19/15 Escitalopram Oxalate (LEXAPRO) 20 Mg Tablet, 1 TAB PO DAILY, #90 TAB 3 Refills 10/19/15 Past Medical History Medical History: diabetes, high cholesterol, thyroid disease Surgical History: cholecystectomy, hysterectomy LMP (females 10-50): hysterectomy Family History Significant Family History: no pertinent family hx Social History Smoking: quit greater than 1 year Alcohol Use: none Drug Use: none Review of Systems EENTM: throat pain All Other Systems: Reviewed and Negative Physical Exam General Appearance: No Apparent Distress, WD/WN EENT: eyes nml inspection, nml ENT inspection Neck: Non-Tender Respiratory: lungs clear CVS: reg rate & rhythm Back: Normal Inspection, No CVA Tenderness Extremities: Normal Range of Motion 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
[2017-07-08 18:22] VITALS: BP 128/83
== END 2017-07-08 18:16 | disposition home or self-care (01) ==
LOC: ER 16:35
DX: R13.10 Dysphagia, unspecified (principal); E11.9 Type 2 diabetes mellitus without complications; E78.00 Pure hypercholesterolemia, unspecified; E07.9 Disorder of thyroid, unspecified; F17.210 Nicotine dependence, cigarettes, uncomplicated; Z90.49 Acquired absence of other specified parts of digestive tract; Z90.710 Acquired absence of both cervix and uterus; Z79.4 Long term (current) use of insulin; Z79.899 Other long term (current) drug therapy
CPT/HCPCS: 87070; 87880; 99284

== ENCOUNTER → 2017-07-18 | Outpatient (CLI) | payer MEDICARE, MEDICAID ==
--- NOTE | 2017-07-18 17:27 | DIREP ---
PROCEDURE:US THYROID TECHNIQUE:Thyroid ultrasound was performed with a high-frequency transducer. COMPARISON:None. INDICATIONS:E04.9 NONTOXIC GOITER THYROID OVERVIEW Right lobe - size: 3.6 x 1.0 x 1.5 cm, heterogeneous, 0 nodules Isthmus - size: 0.5 cm, heterogeneous, 0 nodules Left lobe - size: 1.2 x 0.4 x 0.4 cm, heterogeneous, 0 nodules THYROID NODULES -- No Reportable Nodules -- TI-RADS: 1 = Benign, 2 = Not Suspicious, 3 = Mildly Suspicious, 4 = Moderately Suspicious, 5 = Highly Suspicious Reference: 2017 JACR, ACR Thyroid Imaging, Reporting and Data System (TIRADS): White Paper of the ACR TI-RADS Committee. OTHER:A small portion of the left lobe is visualized after being surgically removed. CONCLUSION: 1. Based on TI-RADS criteria, no FNA or additional follow-up is required. 2. Remnant of left thyroid lobe following surgery. Dictated by: RUDYA Physician on 07/18/2017 at 04:16 PM brian
== END | disposition home or self-care (01) ==
LOC: RAD 15:41
PROVIDERS: ATTEND Nurse Practitioner Family
DX: E04.9 Nontoxic goiter, unspecified (principal)
CPT/HCPCS: 76536

== ENCOUNTER → 2017-08-07 | Outpatient (CLI) | payer MEDICARE, MEDICAID ==
--- NOTE | 2017-08-07 12:43 | DIREP ---
PROCEDURE:XR BARIUM SWALLOW - MODIFIED COMPARISON:None. INDICATIONS: Dysphagia TECHNIQUE:A comprehensive fluoroscopic examination of swallowing was performed, utilizing a variety of barium consistencies. FINDINGS: ORAL PHASE:Normal. PHARYNGEAL PHASE:Normal. ASPIRATION:No penetration or aspiration was observed with all barium consistencies. OTHER:Negative. FLUORO TIME: 1.4 minutes NUMBER OF IMAGES: 1 CONCLUSION:Normal study. Please also refer to speech pathology report. Dictated by: John Joyner M.D. on 08/07/2017 at 12:45 PM
== END | disposition home or self-care (01) ==
LOC: RAD 11:29
PROVIDERS: ATTEND Nurse Practitioner Family
DX: E04.9 Nontoxic goiter, unspecified (principal); R13.10 Dysphagia, unspecified; R68.89 Other general symptoms and signs
CPT/HCPCS: 74230; 92611; G8996; G8997; G8998

== ENCOUNTER 2017-10-02 21:27 | Emergency (ER) | payer MEDICARE, OTHER ==
[~2017-10-02] VITALS: Ht 162.6 cm; Wt 69.4 kg
[2017-10-02 22:05] VITALS: BP 157/105
--- NOTE | 2017-10-02 22:06 | NUR ---
ARRIVAL PATIENT TO ROOM 5, AMBULATORY. PATIENT STATES SHE HAS HAD VOMITTING TODAY, A COUGH X2 WEEKS THAT HAS NOT GOTTEN BETTER WITH ANTIBIOTICS AND LEFT LEG EDEMA, ALONG WITH PAINFUL INSPIRATION. PATIENT HAS NO PERTINENT MEDICAL HISTORY BUT DOES STATE SHE IS BIPOLAR. ASSESSMENT COMPLETED, AWAITING MD JORDAN AT THIS TIME.
[2017-10-02] MEDS ORDERED: ZOFRAN ODT ONE (23:45)
--- NOTE | 2017-10-02 23:50 | NUR ---
Orthostatic BPs taken, reported findings to Dr. Sánchez. Laying BP 92/59 HR 120, Sitting BP 110/62 HR 134, Standing 84/52 HR 150. New orders received.
--- NOTE | 2017-10-02 23:52 | ER.PDOC ---
General Chief Complaint: Nausea,Vomiting,Diarrhea Stated Complaint: VOMITING Time seen by MD: 23:50 Source: patient Exam Limitations: no limitations History of Present Illness Initial Comments 47 year old white female with nausea, vomiting and diarrhea since early this afternoon. A son has vomiting last week. No fever, not in pain. Severity/Quality: moderate Abdominal Pain Onset Location: Epigastric Associated Symptoms (vomiting): freq vomitng Allergies: Coded Allergies: No Known Allergies (Unverified , 10/29/16) Home Meds Reported Medications Lurasidone Hcl (LATUDA) 40 Mg Tablet, 1 TAB PO HS, #30 TAB 1 Refill 10/29/16 Liraglutide (VICTOZA 3-SAUL) 0.6 Mg/0.1 Ml Pen.injctr, 1.2 MG SQ DAILY, #9 MILLILITER 3 Refills 10/29/16 Hydrocodone Bit/Acetaminophen (NORCO 7.5-325) 1 Each Tablet, 1 TAB PO Q6, #120 TAB 10/29/16 Hydroxyzine Pamoate (VISTARIL) 25 Mg Capsule, 1 CAP PO Q6, #60 CAP 1 Refill 10/29/16 Lamotrigine (LAMICTAL) 200 Mg Tablet, 1 TAB PO HS, #30 TAB 1 Refill 10/29/16 Pravastatin Sodium (PRAVASTATIN SODIUM) 40 Mg Tablet, 1 TAB PO HS, #90 TAB 1 Refill 10/19/15 Levothyroxine Sodium (LEVOTHYROXINE SODIUM) 50 Mcg Tablet, 1 TAB PO DAILY, #30 TAB 5 Refills 10/19/15 Metformin Hcl (METFORMIN HCL) 850 Mg Tablet, 1 TAB PO BID, #60 TAB 5 Refills 10/19/15 Escitalopram Oxalate (LEXAPRO) 20 Mg Tablet, 1 TAB PO DAILY, #90 TAB 3 Refills 10/19/15 Vital Signs First Vital Signs Date Time Temp Pulse Resp B/P (MAP) Pulse Ox O2 Delivery O2 Flow Rate FiO2 10/02/17 21:59 98.3 89 20 98 10/02/17 22:05 157/105 (122) Room Air Last Vital Signs Date Time Temp Pulse Resp B/P (MAP) Pulse Ox O2 Delivery O2 Flow Rate FiO2 10/02/17 22:05 98.3 89 20 157/105 (122) 98 Room Air Past Medical History Medical History: diabetes Surgical History: cholecystectomy, hysterectomy LMP (females 10-50): hysterectomy Social History Smoking: non-smoker Alcohol Use: none Drug Use: none Constitutional: malaise EENTM: no symptoms reported Respiratory: no symptoms reported Cardiovascular: no symptoms reported Gastrointestinal: see HPI Genitourinary: no symptoms reported Musculoskeletal: no symptoms reported Skin: no symptoms reported Psychiatric/Neurological: no symptoms reported Endocrine: no symptoms reported Hematologic/Lymphatic: no symptoms reported Physical Exam General Appearance: No Apparent Distress HEENT: PERRL/EOMI, Normal ENT Inspection, TMs Normal, Pharynx Normal, Other ( dry mucosa) Neck: Non-Tender, Full Range of Motion, Supple, Normal Inspection Respiratory: chest non-tender, lungs clear, normal breath sounds, no respiratory distress, no accessory muscle use Cardiovascular: Normal Peripheral Pulses, Regular Rate, Rhythm, No Edema, No Gallop, No JVD, No Murmur Gastrointestinal: Normal Bowel Sounds, Non Tender, Soft Back: Normal Inspection, No CVA Tenderness, No Vertebral Tenderness Extremities: Normal Range of Motion, Non-Tender, Normal Inspection, No Pedal Edema, No Calf Tenderness, Normal Capillary Refill, Pelvis Stable Neurologic/Psychiatric: drawing box tender II-XII NML as Tested, No Motor/Sensory Deficits, Alert, Normal Mood/Affect, Oriented x 3 Skin: Normal Color, Warm/Dry Lymphatic: No Adenopathy Results/Orders Results/Orders Laboratory Tests Test 10/03/17 00:08 White Blood Count 7.6 10^3/uL (4.5-11.0) Red Blood Count 4.40 10^6/uL (4.00-5.20) Hemoglobin 12.6 g/dL (12.0-15.0) Hematocrit 39.7 % (36.0-46.0) Mean Corpuscular Volume 90.2 fL (78-100) Mean Corpuscular Hemoglobin 28.6 pg (26-34) Mean Corpuscular Hemoglobin Concent 31.7 g/dL (33-37) Red Cell Distribution Width 14.6 % (11.5-14.5) Platelet Count 309 10^3/uL (150-400) Mean Platelet Volume 8.2 fL (7.8-11.0) Neutrophils (%) (Auto) 87.2 % (41.0-85.0) Lymphocytes (%) (Auto) 7.1 % (24.0-44.0) Monocytes (%) (Auto) 3.7 % (5.0-12.0) Neutrophils # (Auto) 6.7 10^3/uL (1.8-7.7) Lymphocytes # (Auto) 0.5 10^3/uL (1.0-4.8) Monocytes # (Auto) 0.3 10^3/uL (0.3-0.8) Absolute Immature Granulocyte (auto 0.02 10^3 u/L (0-2) Eosinophils % 1.6 % (0.0-5.0) Basophils % 0.1 % (0.0-0.2) Basophils # 0.0 10^3/uL (0.0-0.1) Eosinophil Count 0.1 10^3/uL (0.0-0.2) Sodium Level 139 mmol/L (132-145) Potassium Level 4.2 mmol/L (3.6-5.2) Chloride Level 103.0 mmol/L (96-109) Carbon Dioxide Level 25.0 mmol/L (20.0-32) Anion Gap 15.2 Blood Urea Nitrogen 14 mg/dL (7-18) Creatinine 0.76 mg/dL (0.59-1.40) Estimated GFR () 99.6 (>/=60) BUN/Creatinine Ratio 18.0 Glucose Level 110 mg/dL (70-110) Calcium Level 8.4 mg/dL (8.4-10.5) Total Bilirubin 0.5 mg/dL (0.2-1.0) Aspartate Amino Transf (AST/SGOT) 16 U/L (0-35) Alanine Aminotransferase (ALT/SGPT) 13 U/L (12-78) Alkaline Phosphatase 71 U/L (50-136) Total Protein 7.1 g/dL (6.4-8.2) Albumin 3.6 g/dL (3.4-5.0) Globulin 3.5 Amylase Level 33 U/L (25-115) Lipase 84 U/L (114-286) Percent Immature Gran (Cell Imm) 0.30 % (0.00-0.50) Administered Medications Medications (Trade) Dose Ordered Sig/Drake Route PRN Reason Start Time Stop Time Status Last Admin Dose Admin Sodium Chloride 1,000 ml @ 999 mls/hr Q1H1M STAT IV 10/03/17 00:02 10/03/17 01:02 DC 10/03/17 00:26 Ondansetron HCl (Zofran Odt) 4 mg STAT STAT SL 10/03/17 00:13 10/03/17 00:14 DC 10/03/17 00:25 Ondansetron HCl (Zofran) 4 mg STAT STAT IV 10/03/17 00:40 10/03/17 00:41 DC 10/03/17 01:21 Sodium Chloride 1,000 ml @ 999 mls/hr Q1H1M ONCE IV 10/03/17 01:30 10/03/17 02:30 10/03/17 01:22 Progress Progress [place] better on recheck at 150am Departure Time of Disposition: 01:48 Disposition: 01 HOME, SELF-CARE Impression: Primary Impression: Gastroenteritis Additional Impression: Volume depletion Condition: Stable Referrals: SOREN KEITH MRP CONTROLLER (PCP) PRIMARY CARE PROVIDER Additional Instructions: Clear liquid diet Follow up PCP RTER prn Duration or Time Spent with Pa: 45 MARNI TALLEY MD Oct 02, 2017 23:52
[2017-10-03] MEDS ORDERED: NS 1000ML 1,000 ML STA (00:02)
[2017-10-03] MEDS ORDERED: NS 1000ML 1,000 ML ONE ×2 (00:06→01:12)
[2017-10-03] MEDS ORDERED: ZOFRAN ODT SL STA (00:13)
[2017-10-03 00:17] LABS: BASOPHIL % 0.1 % (0.0-0.2); EOSINOPHIL # 0.1 10^3/uL (0.0-0.2); EOSINOPHIL % 1.6 % (0.0-5.0); HEMOGLOBIN 12.6 g/dL (12.0-15.0); LYMPHOCYTES # 0.5 10^3/uL (1.0-4.8); LYMPHOCYTES % 7.1 % (24.0-44.0); MEAN CELL HGB 28.6 pg (26-34); MEAN CELL HGB CONCENTRATION 31.7 g/dL (33-37); MEAN CORP VOLUME 90.2 fL (78-100); MEAN PLATELET VOLUME 8.2 fL (7.8-11.0); MONOCYTES # 0.3 10^3/uL (0.3-0.8); MONOCYTES % 3.7 % (5.0-12.0); NEUTROPHIL # 6.7 10^3/uL (1.8-7.7); NEUTROPHILS % 87.2 % (41.0-85.0); RED CELL DISTRIBUTION WIDTH 14.6 % (11.5-14.5); WHITE BLOOD CELL 7.6 10^3/uL (4.5-11.0)
[2017-10-03 00:29] LABS: CALCIUM 8.4 mg/dL (8.4-10.5)
[2017-10-03] MEDS ORDERED: ZOFRAN IV STA (00:40)
[2017-10-03] MEDS ORDERED: ZOFRAN ONE (01:12)
--- NOTE | 2017-10-03 01:20 | NUR ---
Zofran 4 mg IVP. 1000 ml bolus of NS started; bag # 2.
[2017-10-03] MEDS ORDERED: NS 1000ML 1,000 ML IV ONE (01:30)
[2017-10-03 01:56] VITALS: BP 157/105
== END 2017-10-03 02:25 | disposition home or self-care (01) ==
LOC: ER 21:27
DX: K52.9 Noninfective gastroenteritis and colitis, unspecified (principal); E86.9 Volume depletion, unspecified; E11.9 Type 2 diabetes mellitus without complications; Z90.49 Acquired absence of other specified parts of digestive tract; Z90.710 Acquired absence of both cervix and uterus; Z79.899 Other long term (current) drug therapy
CPT/HCPCS: 36415; 80053; 82150; 83690; 85025; 96361; 96374; 99284; J2405; J7030 ×2; Q0162

== ENCOUNTER 2018-01-14 17:27 | Emergency (ER) | payer MEDICARE, MEDICAID ==
[~2018-01-14] VITALS: Ht 167.6 cm; Wt 68.0 kg
[~2018-01-14 17:27] MED LIST changes: -METF500T4 PO; +METF500T5 PO
[2018-01-14 17:40] VITALS: BP 114/75
[2018-01-14] MEDS ORDERED: ASPIRIN ONE (17:40)
--- NOTE | 2018-01-14 17:40 | NUR ---
ARRIVAL PATIENT ARRIVED TO ED6 VIA W/C, C/O OF CHEST PAIN SINCE LAST NIGHT, DOES SEE DOCTOR KAYLEE FOR INCREASED HEART RATE. CAME TO THE ED FOR FURTHER EVAL.
--- NOTE | 2018-01-14 17:46 | ER.PDOC ---
General Chief Complaint: Requesting Medical Care Stated Complaint: CHEST PAIN SINCE LAST NIGHT Time seen by MD: 17:38 Source: patient Exam Limitations: no limitations History of Present Illness Initial Comments Chest pain since last night, now has subsided,nausea, tender chest wall Timing/Duration: 24 hours Severity/Quality: moderate Radiation: no radiation Activities at Onset: none Prior CP/Workup: Other (CP a month ago) Nitro Today/Relief: No Nitro Taken Today Aspirin Today: No Aspirin Today Associated Symptoms: abdominal pain, nausea/vomiting Allergies: Coded Allergies: No Known Allergies (Unverified , 10/29/16) Home Meds Reported Medications Lurasidone Hcl (LATUDA) 40 Mg Tablet, 1 TAB PO HS, #30 TAB 1 Refill 10/29/16 Liraglutide (VICTOZA 3-SAUL) 0.6 Mg/0.1 Ml Pen.injctr, 1.2 MG SQ DAILY, #9 MILLILITER 3 Refills 10/29/16 Hydrocodone Bit/Acetaminophen (NORCO 7.5-325) 1 Each Tablet, 1 TAB PO Q6, #120 TAB 10/29/16 Hydroxyzine Pamoate (VISTARIL) 25 Mg Capsule, 1 CAP PO Q6, #60 CAP 1 Refill 10/29/16 Lamotrigine (LAMICTAL) 200 Mg Tablet, 1 TAB PO HS, #30 TAB 1 Refill 10/29/16 Pravastatin Sodium (PRAVASTATIN SODIUM) 40 Mg Tablet, 1 TAB PO HS, #90 TAB 1 Refill 10/19/15 Levothyroxine Sodium (LEVOTHYROXINE SODIUM) 50 Mcg Tablet, 1 TAB PO DAILY, #30 TAB 5 Refills 10/19/15 Metformin Hcl (METFORMIN HCL) 850 Mg Tablet, 1 TAB PO BID, #60 TAB 5 Refills 10/19/15 Escitalopram Oxalate (LEXAPRO) 20 Mg Tablet, 1 TAB PO DAILY, #90 TAB 3 Refills 10/19/15 Past Medical History Surgical History: cholecystectomy, hysterectomy Social History Drug Use: none Constitutional: no symptoms reported EENTM: no symptoms reported Respiratory: no symptoms reported Cardiovascular: see HPI Gastrointestinal: nausea Genitourinary: no symptoms reported Musculoskeletal: no symptoms reported Skin: no symptoms reported Psychiatric/Neurological: no symptoms reported Endocrine: no symptoms reported Hematologic/Lymphatic: no symptoms reported Physical Exam General Appearance: No Apparent Distress, WD/WN HEENT: PERRL/EOMI, Normal ENT Inspection, TMs Normal, Pharynx Normal Neck: Non-Tender, Full Range of Motion, Supple, Normal Inspection Respiratory: chest non-tender, lungs clear, normal breath sounds, no respiratory distress, no accessory muscle use Cardiovascular: Normal Peripheral Pulses, Regular Rate, Rhythm, No Edema, No Gallop, No JVD, No Murmur Gastrointestinal: Normal Bowel Sounds, No Organomegaly, No Pulsatile Mass, Non Tender, Soft Extremities: Normal Range of Motion, Non-Tender, Normal Inspection, No Pedal Edema, No Calf Tenderness, Normal Capillary Refill 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
--- NOTE | 2018-01-14 17:49 | PCM.EKG ---
[facility] Test Date: 2018-01-14 Test Time: 17:44:37 Pat Name: GREGORY RICARDO Department: [id number] Room: Gender: F Card Dealer: ADILIA : 1970 Requested By: SAVAGE WATSON Order Number: [id number] Reading MD: Savage Watson Measurements Intervals Phyllis Rate: 72 P: 49 DE: 172 QRS: 51 QRSD: 80 T: 41 QT: 390 QTc: 427 Interpretive Statements Normal sinus rhythm Normal ECG No previous ECG available for comparison Electronically Signed On 01-14-2018 22:32:55 CDT by Savage Watson Please click the below link to view image of tracing.
[2018-01-14 18:00] LABS: BASOPHIL % 0.6 % (0.0-0.2); EOSINOPHIL # 0.3 10^3/uL (0.0-0.2); EOSINOPHIL % 5.3 % (0.0-5.0); HEMOGLOBIN 11.2 g/dL (12.0-15.0); LYMPHOCYTES # 2.8 10^3/uL (1.0-4.8); LYMPHOCYTES % 43.8 % (24.0-44.0); MEAN CELL HGB 29.1 pg (26-34); MEAN CELL HGB CONCENTRATION 32.1 g/dL (33-37); MEAN CORP VOLUME 90.6 fL (78-100); MEAN PLATELET VOLUME 8.2 fL (7.8-11.0); MONOCYTES # 0.4 10^3/uL (0.3-0.8); MONOCYTES % 6.2 % (5.0-12.0); NEUTROPHIL # 2.8 10^3/uL (1.8-7.7); NEUTROPHILS % 43.9 % (41.0-85.0); RED CELL DISTRIBUTION WIDTH 14.5 % (11.5-14.5); WHITE BLOOD CELL 6.4 10^3/uL (4.5-11.0)
[2018-01-14] MEDS ORDERED: NITROSTAT SL PRN (18:00)
[2018-01-14] MEDS ORDERED: ASPIRIN PO PRN (18:00)
[2018-01-14 18:23] LABS: ALANINE AMINOTRANSFERASE(ML) 19 U/L (12-78); ALKALINE PHOSPHATASE 77 U/L (50-136); ASPARTATE AMINO TRANSFERASE 13 U/L (0-35); CALCIUM 8.8 mg/dL (8.4-10.5); CARBON DIOXIDE 26.7 mmol/L (20.0-32); GLUCOSE 107 mg/dL (70-110)
[2018-01-14 18:46] VITALS: BP 114/75
--- NOTE | 2018-01-14 21:15 | DIREP ---
PROCEDURE:CHEST 1 VIEW COMPARISON:[facility], , CHEST 1 VIEW, 08/11/2013, 09:18 AM. INDICATIONS:cP FINDINGS: LUNGS/PLEURA:No significant pulmonary parenchymal abnormalities. No effusions. VASCULATURE:Normal. Unremarkable pulmonary vasculature. CARDIAC:Normal. No cardiac silhouette abnormality or cardiomegaly. MEDIASTINUM:Normal. No visible mass or adenopathy. BONES:Normal. No fracture or visible bony lesion. OTHER:Negative. CONCLUSION:No infiltrate, no effusion, no change. Dictated by: Tiffanie Angel MD on 01/14/2018 at 09:12 PM
== END 2018-01-14 18:43 | disposition home or self-care (01) ==
LOC: ER 17:27
DX: R07.89 Other chest pain (principal); R10.9 Unspecified abdominal pain; R11.2 Nausea with vomiting, unspecified; Z90.710 Acquired absence of both cervix and uterus; Z90.49 Acquired absence of other specified parts of digestive tract; Z79.899 Other long term (current) drug therapy
CPT/HCPCS: 36415; 71045; 80053; 82550; 82553; 83880; 84484; 85025; 85610; 85730; 93005; 99285

== ENCOUNTER → 2018-01-27 | Outpatient (CLI) | payer MEDICARE, MEDICAID ==
--- NOTE | 2018-01-27 15:53 | DIREP ---
PROCEDURE:Digital Screening Mammogram TECHNIQUE:MLO and CC digital images of each breast are provided. Computer Assisted Detection (CAD) was utilized. COMPARISON:[facility], , MAMMO BILATERAL SCREENING, 02/01/2015, 01:30 PM. INDICATIONS:SCREENING BREAST COMPOSITION:There are scattered areas of fibroglandular density. FINDINGS:There are no grouped microcalcifications, masses, or architectural distortions to suggest malignancy. There is no significant change as compared with the previous examination(s). IMPRESSION:No mammographic evidence of malignancy. RECOMMENDATIONS:Routine Screening Mammography per [employer] guidelines. OVERALL FINAL ASSESSMENT:BI-RADS 1 - Negative Mammogram Note: This facility participates in a mammography screening patient reminder system. Dictated by: Madi Murry M.D. on 01/27/2018 at 03:50 PM
== END | disposition home or self-care (01) ==
LOC: RAD 13:40
PROVIDERS: ATTEND Obstetrics & Gynecology
DX: Z12.31 Encounter for screening mammogram for malignant neoplasm of breast (principal); I10 Essential (primary) hypertension; E11.9 Type 2 diabetes mellitus without complications; E78.5 Hyperlipidemia, unspecified; E03.9 Hypothyroidism, unspecified
CPT/HCPCS: 77067

== ENCOUNTER → 2018-03-13 | Outpatient (CLI) | payer MEDICARE, MEDICAID | END | disposition home or self-care (01) | LOC: RT 09:25 | PROVIDERS: ATTEND Nurse Practitioner Family | DX: R06.02 Shortness of breath (principal); E11.9 Type 2 diabetes mellitus without complications; I10 Essential (primary) hypertension; E78.00 Pure hypercholesterolemia, unspecified; M17.12 Unilateral primary osteoarthritis, left knee; K21.9 Gastro-esophageal reflux disease without esophagitis; Z90.49 Acquired absence of other specified parts of digestive tract; Z87.891 Personal history of nicotine dependence; Z90.710 Acquired absence of both cervix and uterus | CPT/HCPCS: 94010 ==

== ENCOUNTER 2018-04-14 00:30 | Day surgery (SDC) | payer MEDICARE, MEDICAID ==
[2018-04-09 13:41] VITALS: BP 102/66
[2018-04-14] VITALS (7 sets, daily range): BP systolic 84–106; BP diastolic 55–69
[~2018-04-14] VITALS: Ht 160 cm; Wt 67.6 kg
[~2018-04-14 00:30] MED LIST changes: +DULO30CA2 PO; +ESTR0.5T PO; +HYDR-3468 PO; -HYDR-926 PO; +METF10007 PO; +METF500T17 PO; -METF500T5 PO; -METF850T2 PO; +METF850T9 PO; +METO-237 PO; +MOVIPREP POWDER PACKET PO STA; +TRAZ-131 PO
[2018-04-14] MEDS ORDERED: NS 1000ML 1,000 ML ONE (05:42)
[2018-04-14] MEDS ORDERED: NS 1000ML 1,000 ML IV SCH (07:00)
[2018-04-14] MEDS ORDERED: DIPRIVAN IV ONE (07:09)
[2018-04-14] MEDS ORDERED: SUBLIMAZE ONE (07:09)
[2018-04-14] MEDS ORDERED: VERSED ONE (07:09)
[2018-04-14] MEDS ORDERED: NS 100ML 100 ML IV ONE (07:09)
[2018-04-14] MEDS ORDERED: LIDOCAINE 2% VIAL ONE (07:10)
[2018-04-14] MEDS ORDERED: GLUCAGEN ONE ×2 (07:28→07:30)
[2018-04-14] MEDS ORDERED: ZOFRAN ONE (07:56)
[2018-04-14] MEDS ORDERED: FLUARIX QUAD 2017-2018 SYRINGE IM ONE (09:30)
--- NOTE | 2018-04-14 09:58 | OPH ---
DATE OF SURGERY: 04/14/2018 PREOPERATIVE DIAGNOSES: History of weight loss and anemia. POSTOPERATIVE DIAGNOSES: Mild gastritis, healthy appearing colon with moderate quality prep. SURGEON: Jeffrey Ames DO BANK TELLER MACHINE MECHANIC: OR staff. ANESTHESIA: Total intravenous anesthesia by Love Patton CRNA. PROCEDURES PERFORMED: 1. Esophagogastroduodenoscopy with biopsy. 2. Long flexible colonoscopy to cecum with biopsy of atypical mucosa in the cecum. SPECIMENS: 1. Gastric mucosa. 2. Cecum mucosa, all to path. ESTIMATED BLOOD LOSS: 5 mL. COUNTS: At the completion of the case, counts were correct per OR staff. DESCRIPTION OF PROCEDURE: The patient is a very pleasant 48-year-old female known from previous evaluation. Prior to procedure, informed consent was obtained. At the time of procedure, she was taken to the operative suite and placed in supine position. After time-out, she was placed in a left lateral recumbent position. With excellent sedation, esophagogastroduodenoscope was advanced transorally with pneumoinsufflation distally in second portion of duodenum. Once the duodenum was adequately visualized, camera was slowly withdrawn to facilitate visualization of the duodenal bulb and the pylorus. Pylorus and distal stomach showed minimal gastritis and biopsies were obtained. The retroflexed maneuver was performed. The cardia and fundus were grossly normal. Camera was reduced. Hemostasis was noted to be good. Stomach was decompressed. Scope was slowly withdrawn. Distal, mid and proximal esophagus were within normal limits. Vocal cords were visualized within normal limits. Camera was removed. Procedure was discontinued. The patient remained in the OR. Timeout was previously completed. With adequate sedation, rectal exam was performed. There were no masses. Next, the colonoscope was advanced transanally with pneumoinsufflation proximally. There was some redundancy to the level of cecum. There was noted to be a significant amount of retained liquid stool, which was decompressed as tolerated. Once the cecum was visualized, it was noted that near to the appendiceal orifice, there was a small area of atypical mucosa, which was biopsied with cold forceps. With good hemostasis noted, the camera was slowly withdrawn to facilitate visualization of the ascending colon, hepatic flexure, transverse colon, splenic flexure, descending colon, sigmoid and rectum. There were no overt masses, polyps, or AVMs. At level of 5 cm, camera was retroflexed and reinserted. Anal verge was visualized within normal limits. Camera was reduced. Colon was decompressed. Colonoscope was removed. The patient tolerated this procedure well. There were no acute complications noted. Jeffrey Ames DO DR: DAVE/cathy JOB# [id number] CC: Madi Park NP
[2018-04-14] MEDS ORDERED: AFLURIA 2018-2019 SYRINGE IM ONE (10:00)
== END 2018-04-14 10:17 | disposition home or self-care (01) ==
LOC: SDC 00:30
PROVIDERS: ATTEND Surgery
DX: K63.89 Other specified diseases of intestine (principal); K29.50 Unspecified chronic gastritis without bleeding; D64.9 Anemia, unspecified; E78.5 Hyperlipidemia, unspecified; E11.9 Type 2 diabetes mellitus without complications; F41.9 Anxiety disorder, unspecified; K21.9 Gastro-esophageal reflux disease without esophagitis; J44.9 Chronic obstructive pulmonary disease, unspecified; F32.9 Major depressive disorder, single episode, unspecified; E03.9 Hypothyroidism, unspecified; F15.90 Other stimulant use, unspecified, uncomplicated; Z98.890 Other specified postprocedural states; Z90.722 Acquired absence of ovaries, bilateral; Z90.710 Acquired absence of both cervix and uterus; Z83.3 Family history of diabetes mellitus; Z80.1 Family history of malignant neoplasm of trachea, bronchus and lung; Z80.41 Family history of malignant neoplasm of ovary; Z82.5 Family history of asthma and other chronic lower respiratory diseases; Z87.891 Personal history of nicotine dependence
CPT/HCPCS: 36415; 43239; 45380; 82948 ×4; 85610; 85730; 88305 ×2; 90686; J1610 ×2; J2001; J2250; J2405; J3010; J3490; J7030; J7050; G0121

== ENCOUNTER 2018-04-14 17:24 | Emergency (ER) | payer MEDICARE, MEDICAID ==
[~2018-04-14] VITALS: Ht 160 cm; Wt 66.7 kg
[~2018-04-14 17:24] MED LIST changes: -MOVIPREP POWDER PACKET PO STA
[2018-04-14 17:44] VITALS: BP 128/74
--- NOTE | 2018-04-14 17:45 | NUR ---
ARRIVAL PATIENT ARRIVED TO ED6 AMBULATORY, C/O OF NAUSEA AND VOMITING SINCE 1500 TODAY, EMESIS X4 PER PATIENT. CAME TO THE ED FOR FURTHER EVAL.
[2018-04-14] MEDS ORDERED: ZOFRAN ODT ONE (17:58)
--- NOTE | 2018-04-14 18:01 | ER.PDOC ---
General Chief Complaint: Nausea,Vomiting,Diarrhea Stated Complaint: N/V Time seen by MD: 17:59 Source: patient Exam Limitations: no limitations History of Present Illness Initial Comments Nausea/vomiting for 1-3 hours, had Colonoscopy and EGD today. Severity/Quality: mild Associated Symptoms (vomiting): mild vomiting Allergies: Coded Allergies: No Known Allergies (Unverified , 10/29/16) Home Meds Reported Medications Estradiol (ESTRADIOL) 0.5 Mg Tablet, 1 TAB PO DAILY, #30 TAB 11 Refills 04/09/18 Metoprolol Succinate (METOPROLOL SUCCINATE) 50 Mg Tab.er.24h, 1 TAB PO DAILY, # 30 TAB 5 Refills 04/09/18 Duloxetine Hcl (CYMBALTA) 30 Mg Capsule.dr, 1 CAP PO BID, #30 CAP 5 Refills 04/09/18 Trazodone Hcl (TRAZODONE HCL) 100 Mg Tablet, 2 TAB PO HS, #30 TAB 1 Refill 04/09/18 Omeprazole (OMEPRAZOLE) 40 Mg Capsule.dr, 1 CAP PO DAILY, #30 CAP 3 Refills 04/09/18 Liraglutide (VICTOZA 3-SAUL) 0.6 Mg/0.1 Ml Pen.injctr, 1.8 MG SQ DAILY, #27 MILLILITER 3 Refills 04/09/18 Metformin Hcl (METFORMIN HCL) 1,000 Mg Tablet, 1 TAB PO BID, #60 TAB 5 Refills 04/09/18 Lamotrigine (LAMICTAL) 100 Mg Tablet, 1 TAB PO HS, #30 TAB 1 Refill 04/09/18 Pravastatin Sodium (PRAVASTATIN SODIUM) 40 Mg Tablet, 1 TAB PO HS, #90 TAB 1 Refill 10/19/15 Levothyroxine Sodium (LEVOTHYROXINE SODIUM) 50 Mcg Tablet, 1 TAB PO DAILY, #30 TAB 5 Refills 10/19/15 Discontinued Reported Medications Lurasidone Hcl (LATUDA) 40 Mg Tablet, 1 TAB PO HS, #30 TAB 1 Refill 10/29/16 Liraglutide (VICTOZA 3-SAUL) 0.6 Mg/0.1 Ml Pen.injctr, 1.2 MG SQ DAILY, #9 MILLILITER 3 Refills 10/29/16 Hydrocodone Bit/Acetaminophen (NORCO 7.5-325) 1 Each Tablet, 1 TAB PO Q6, #120 TAB 10/29/16 Hydroxyzine Pamoate (VISTARIL) 25 Mg Capsule, 1 CAP PO Q6, #60 CAP 1 Refill 10/29/16 Lamotrigine (LAMICTAL) 200 Mg Tablet, 1 TAB PO HS, #30 TAB 1 Refill 10/29/16 Metformin Hcl (METFORMIN HCL) 850 Mg Tablet, 1 TAB PO BID, #60 TAB 5 Refills 10/19/15 Escitalopram Oxalate (LEXAPRO) 20 Mg Tablet, 1 TAB PO DAILY, #90 TAB 3 Refills 10/19/15 Vital Signs First Vital Signs Date Time Temp Pulse Resp B/P (MAP) Pulse Ox O2 Delivery O2 Flow Rate FiO2 04/14/18 10:12 91 04/14/18 17:41 97.5 18 97.5 04/14/18 17:41 94 Room Air 04/14/18 17:44 128/74 (92) Last Vital Signs Date Time Temp Pulse Resp B/P (MAP) Pulse Ox O2 Delivery O2 Flow Rate FiO2 04/14/18 17:44 97.5 85 18 128/74 (92) 94 Room Air 97.5 Past Medical History Medical History: no pertinent history Surgical History: hysterectomy Social History Smoking: non-smoker Alcohol Use: none Drug Use: none Constitutional: no symptoms reported EENTM: no symptoms reported Respiratory: no symptoms reported Cardiovascular: no symptoms reported Gastrointestinal: see HPI Genitourinary: no symptoms reported All Other Systems: Reviewed and Negative Physical Exam General Appearance: No Apparent Distress, WD/WN Neck: Non-Tender, Full Range of Motion, Supple, Normal Inspection Respiratory: chest non-tender, lungs clear, normal breath sounds, no respiratory distress, no accessory muscle use Cardiovascular: Normal Peripheral Pulses, Regular Rate, Rhythm, No Edema, No Gallop, No JVD, No Murmur Gastrointestinal: Normal Bowel Sounds, Non Tender, Soft Back: Normal Inspection, No CVA Tenderness, No Vertebral Tenderness Extremities: Normal Range of Motion, Non-Tender, Normal Inspection, No Pedal Edema, No Calf Tenderness, Normal Capillary Refill, Pelvis Stable Neurologic/Psychiatric: record tester II-XII NML as Tested, No Motor/Sensory Deficits, Alert, Normal Mood/Affect, Oriented x 3 Skin: Normal Color, Warm/Dry Results/Orders Results/Orders Laboratory Tests Test 04/14/18 18:05 White Blood Count 9.8 10^3/uL (4.5-11.0) Red Blood Count 3.59 10^6/uL (4.00-5.20) Hemoglobin 10.7 g/dL (12.0-15.0) Hematocrit 33.3 % (36.0-46.0) Mean Corpuscular Volume 92.8 fL (78-100) Mean Corpuscular Hemoglobin 29.8 pg (26-34) Mean Corpuscular Hemoglobin Concent 32.1 g/dL (33-37) Red Cell Distribution Width 13.2 % (11.5-14.5) Platelet Count 337 10^3/uL (150-400) Mean Platelet Volume 7.9 fL (7.8-11.0) Neutrophils (%) (Auto) 79.8 % (41.0-85.0) Lymphocytes (%) (Auto) 13.8 % (24.0-44.0) Monocytes (%) (Auto) 4.2 % (5.0-12.0) Neutrophils # (Auto) 7.8 10^3/uL (1.8-7.7) Lymphocytes # (Auto) 1.4 10^3/uL (1.0-4.8) Monocytes # (Auto) 0.4 10^3/uL (0.3-0.8) Absolute Immature Granulocyte (auto 0.02 10^3 u/L (0-2) Eosinophils % 1.8 % (0.0-5.0) Basophils % 0.2 % (0.0-0.2) Basophils # 0.0 10^3/uL (0.0-0.1) Eosinophil Count 0.2 10^3/uL (0.0-0.2) Urine Collection Type UNKNOWN Urine Color STRAW (YELLOW) Urine Appearance CLEAR (CLEAR) Urine Bilirubin NEGATIVE MG/DL (NEGATIVE) Urine Ketones NEGATIVE (NEGATIVE) Urine Specific [place] 1.015 (1.005-1.035) Urine pH 5 (5.0-6.0) Urine Protein NEGATIVE (NEGATIVE) Urine Urobilinogen NORMAL (NEGATIVE) Urine Nitrate NEGATIVE (NEGATIVE) Urine Leukocyte Esterase NEGATIVE (NEGATIVE) Urine Blood NEGATIVE (NEGATIVE) Urine Glucose NORMAL (NEGATIVE) Urine HCG, Qualitative NEGATIVE (NEGATIVE) Sodium Level 139 mmol/L (132-145) Potassium Level 3.8 mmol/L (3.6-5.2) Chloride Level 105.0 mmol/L (96-109) Carbon Dioxide Level 24.8 mmol/L (20.0-32) Anion Gap 13.0 Blood Urea Nitrogen 8 mg/dL (7-18) Creatinine 0.83 mg/dL (0.59-1.40) Estimated GFR () 89.6 (>/=60) BUN/Creatinine Ratio 9.0 Glucose Level 96 mg/dL (70-110) Calcium Level 8.1 mg/dL (8.4-10.5) Total Bilirubin 0.2 mg/dL (0.2-1.0) Aspartate Amino Transf (AST/SGOT) 17 U/L (0-35) Alanine Aminotransferase (ALT/SGPT) 17 U/L (12-78) Alkaline Phosphatase 65 U/L (50-136) Total Protein 6.2 g/dL (6.4-8.2) Albumin 3.4 g/dL (3.4-5.0) Globulin 2.8 Lipase 117 U/L (114-286) Percent Immature Gran (Cell Imm) 0.20 % (0.00-0.50) Progress Progress Patient feeling better. EKG/XRAY/CT/US XRAY: abdomen (Nothing acute) Departure Time of Disposition: 18:59 Disposition: 01 HOME, SELF-CARE Impression: Primary Impression: Nausea & vomiting Qualified Codes: R11.2 - Nausea with vomiting, unspecified Condition: Improved Referrals: SOREN KEITH RAINBOW TROUT FARM MANAGER (PCP) PRIMARY CARE PROVIDER Additional Instructions: Phenergan Start feeding with clear liquids and advance diet as tolerated F/U with your PCP in 2-3 days Duration or Time Spent with Pa: 60 mins YASMIN KENT MD Apr 14, 2018 18:01
[2018-04-14 18:09] LABS: BASOPHIL % 0.2 % (0.0-0.2); BILIRUBIN,URINE NEGATIVE (NEGATIVE); EOSINOPHIL # 0.2 10^3/uL (0.0-0.2); EOSINOPHIL % 1.8 % (0.0-5.0); HEMOGLOBIN 10.7 g/dL (12.0-15.0); LYMPHOCYTES # 1.4 10^3/uL (1.0-4.8); LYMPHOCYTES % 13.8 % (24.0-44.0); MEAN CELL HGB 29.8 pg (26-34); MEAN CELL HGB CONCENTRATION 32.1 g/dL (33-37); MEAN CORP VOLUME 92.8 fL (78-100); MEAN PLATELET VOLUME 7.9 fL (7.8-11.0); MONOCYTES # 0.4 10^3/uL (0.3-0.8); MONOCYTES % 4.2 % (5.0-12.0); NEUTROPHIL # 7.8 10^3/uL (1.8-7.7); NEUTROPHILS % 79.8 % (41.0-85.0); RED CELL DISTRIBUTION WIDTH 13.2 % (11.5-14.5); UROBILINOGEN,URINE NORMAL (NEGATIVE); WHITE BLOOD CELL 9.8 10^3/uL (4.5-11.0)
[2018-04-14 18:13] LABS: APPEARANCE,URINE CLEAR (CLEAR); UA COLOR STRAW (YELLOW)
[2018-04-14 18:25] LABS: CALCIUM 8.1 mg/dL (8.4-10.5); CARBON DIOXIDE 24.8 mmol/L (20.0-32)
--- NOTE | 2018-04-14 18:39 | DIREP ---
PROCEDURE:XR ABDOMEN 2 VIEWS COMPARISON:None. INDICATIONS:vomiting S/P Colonoscopy TECHNIQUE:Flat and upright views of the abdomen are provided. FINDINGS: BOWEL GAS PATTERN:There is air distention of the large colon. No bowel dilatation or wall thickening is identified. CALCIFICATIONS:No significant calcifications are visible. LUNGS/LUNG BASES:The visible lungs appear clear of focal consolidation. No evidence of pleural effusion. BONES:No acute changes. No fracture. No visible bony lesion. OTHER:No additional findings. CONCLUSION: 1. There is no evidence of bowel obstruction or free air. Dictated by: Wily Wolfe M.D. on 04/14/2018 at 06:37 PM
[2018-04-14 19:23] VITALS: BP 128/74
== END 2018-04-14 19:21 | disposition home or self-care (01) ==
LOC: ER 17:24
DX: R11.2 Nausea with vomiting, unspecified (principal); Z90.710 Acquired absence of both cervix and uterus; Z79.84 Long term (current) use of oral hypoglycemic drugs; Z79.899 Other long term (current) drug therapy
CPT/HCPCS: 36415; 74019; 80053; 81002; 81025; 83690; 85025; 99285; Q0162

== ENCOUNTER 2018-11-02 11:37 | Emergency (ER) | payer MEDICARE, MEDICAID ==
[~2018-11-02] VITALS: Ht 160 cm; Wt 54.4 kg
--- NOTE | 2018-11-02 11:40 | NUR ---
[facility] PT HAS HAD 3 EPISODES OF VOMITING TODAY AND HAS STERNAL CHEST PAIN OF AN 8. RT CALLED FOR EKG, BSM ON, REPORT TO
[2018-11-02] MEDS ORDERED: NITROSTAT SL STA (11:55)
[2018-11-02] MEDS ORDERED: NORCO 10MG PO STA (11:55)
[2018-11-02] MEDS ORDERED: ZOFRAN ODT SL STA (11:55)
[2018-11-02] MEDS ORDERED: ASPIRIN PO STA (11:55)
[2018-11-02 11:57] VITALS: BP 128/73
[2018-11-02] MEDS ORDERED: ZOFRAN ODT ONE (12:01)
[2018-11-02] MEDS ORDERED: ASPIRIN ONE (12:02)
[2018-11-02] MEDS ORDERED: NORCO 10MG PO ONE (12:02)
[2018-11-02 12:05] LABS: BASOPHIL % 0.6 % (0.0-0.2); EOSINOPHIL # 0.2 10^3/uL (0.0-0.2); EOSINOPHIL % 3.1 % (0.0-5.0); HEMOGLOBIN 11.4 g/dL (12.0-15.0); LYMPHOCYTES # 1.7 10^3/uL (1.0-4.8); LYMPHOCYTES % 34.4 % (24.0-44.0); MEAN CELL HGB 28.6 pg (26-34); MEAN CELL HGB CONCENTRATION 31.9 g/dL (33-37); MEAN CORP VOLUME 89.7 fL (78-100); MEAN PLATELET VOLUME 7.8 fL (7.8-11.0); MONOCYTES # 0.4 10^3/uL (0.3-0.8); MONOCYTES % 8.8 % (5.0-12.0); NEUTROPHIL # 2.6 10^3/uL (1.8-7.7); NEUTROPHILS % 52.9 % (41.0-85.0); RED CELL DISTRIBUTION WIDTH 14.6 % (11.5-14.5); WHITE BLOOD CELL 4.9 10^3/uL (4.5-11.0)
--- NOTE | 2018-11-02 12:26 | DIREP ---
PROCEDURE:CHEST 1 VIEW COMPARISON:None. INDICATIONS:Chest pain FINDINGS: LUNGS/PLEURA:No significant pulmonary parenchymal abnormalities. No effusions. VASCULATURE:Normal. Unremarkable pulmonary vasculature. CARDIAC:Normal. No cardiac silhouette abnormality or cardiomegaly. MEDIASTINUM:Normal. No visible mass or adenopathy. BONES:Normal. No fracture or visible bony lesion. OTHER:Negative. CONCLUSION:Normal examination. Dictated by: John Joyner M.D. on 11/02/2018 at 12:25 PM
[2018-11-02 12:29] LABS: ALKALINE PHOSPHATASE 81 U/L (50-136); ASPARTATE AMINO TRANSFERASE 18 U/L (0-35); CALCIUM 8.9 mg/dL (8.4-10.5); CARBON DIOXIDE 28.8 mmol/L (20.0-32); GLUCOSE 92 mg/dL (70-110)
--- NOTE | 2018-11-02 12:32 | ER.PDOC ---
General Chief Complaint: Chest Pain-Cardiac Nature Stated Complaint: CHEST PAIN AND VOMITING WHITE FOAM Time seen by MD: 12:22 Source: patient Exam Limitations: no limitations History of Present Illness Severity/Quality: moderate Radiation: no radiation Activities at Onset: none Prior CP/Workup: Cardiac Cath Modifying Factors: movement, palpation Nitro Today/Relief: No Nitro Taken Today Aspirin Today: No Aspirin Today Associated Symptoms: abdominal pain, nausea/vomiting Prior symptoms/Treatment: Similar symptoms previous Allergies: Coded Allergies: No Known Allergies (Unverified , 10/29/16) Home Meds Reported Medications Estradiol (ESTRADIOL) 0.5 Mg Tablet, 1 TAB PO DAILY, #30 TAB 11 Refills 04/09/18 Metoprolol Succinate (METOPROLOL SUCCINATE) 50 Mg Tab.er.24h, 1 TAB PO DAILY, #30 TAB 5 Refills 04/09/18 Duloxetine Hcl (CYMBALTA) 30 Mg Capsule.dr, 1 CAP PO BID, #30 CAP 5 Refills 04/09/18 Trazodone Hcl (TRAZODONE HCL) 100 Mg Tablet, 2 TAB PO HS, #30 TAB 1 Refill 04/09/18 Omeprazole (OMEPRAZOLE) 40 Mg Capsule.dr, 1 CAP PO DAILY, #30 CAP 3 Refills 04/09/18 Liraglutide (VICTOZA 3-SAUL) 0.6 Mg/0.1 Ml Pen.injctr, 1.8 MG SQ DAILY, #27 MILLILITER 3 Refills 04/09/18 Metformin Hcl (METFORMIN HCL) 1,000 Mg Tablet, 1 TAB PO BID, #60 TAB 5 Refills 04/09/18 Lamotrigine (LAMICTAL) 100 Mg Tablet, 1 TAB PO HS, #30 TAB 1 Refill 04/09/18 Pravastatin Sodium (PRAVASTATIN SODIUM) 40 Mg Tablet, 1 TAB PO HS, #90 TAB 1 Refill 10/19/15 Levothyroxine Sodium (LEVOTHYROXINE SODIUM) 50 Mcg Tablet, 1 TAB PO DAILY, #30 TAB 5 Refills 10/19/15 Past Medical History Medical History: diabetes, GERD, high cholesterol, hypertension, thyroid disease, other Surgical History: cholecystectomy, hysterectomy, other Social History Alcohol Use: none Drug Use: none Reviewed Nursing Reviewed: Vital Signs, Abn. Noted All Other Systems: Reviewed and Negative Physical Exam General Appearance: No Apparent Distress, WD/WN HEENT: PERRL/EOMI, Normal ENT Inspection, TMs Normal, Pharynx Normal Respiratory: lungs clear, no respiratory distress, no accessory muscle use Cardiovascular: Normal Peripheral Pulses, Regular Rate, Rhythm, No Edema, No Gallop, No JVD, No Murmur Gastrointestinal: Tenderness Extremities: Normal Range of Motion, Non-Tender, Normal Inspection, No Pedal Edema, No Calf Tenderness, Normal Capillary Refill Neurologic/Psychiatric: surgical scrub technologist II-XII NML as Tested, No Motor/Sensory Deficits, Alert, Normal Mood/Affect, Oriented x 3 Skin: Normal Color, Warm/Dry Lymphatic: No Adenopathy Results/Orders Results/Orders Orders - IAN SHAH MD Cbc With Auto Diff (11/02/18 11:54) Comprehensive Metabolic Panel (11/02/18 11:54) Creatine Kinase (11/02/18 11:54) Troponin I (11/02/18 11:54) Probnp B-Type Cook Frozen Dessert (11/02/18 11:54) PT (11/02/18 11:54) Partial Thromboplastin Time. (11/02/18 11:54) Helicobacter Pylori (11/02/18 11:54) D-Dimer (11/02/18 11:54) Xr Chest 1v (11/02/18 11:54) Ekg-Routine (11/02/18 11:54) Ondansetron (Zofran Odt) (11/02/18 11:55) Hydrocodone/Acetaminophen ([place] 10mg) (11/02/18 11:55) Nitroglycerin (Nitrostat) (11/02/18 11:55) Aspirin (Aspirin) (11/02/18 11:55) Amylase (11/02/18 11:57) Lipase (11/02/18 11:57) Ondansetron (Zofran Odt) (11/02/18 12:01) Aspirin (Aspirin) (11/02/18 12:02) Hydrocodone/Acetaminophen ([place] 10mg) (11/02/18 12:02) Vital Signs Date Time Temp Pulse Resp B/P (MAP) Pulse Ox O2 Delivery O2 Flow Rate FiO2 11/02/18 11:57 98.0 76 16 128/73 (91) 100 Room Air 98.0 11/02/18 11:50 98.0 76 16 98.0 11/02/18 11:50 98.0 76 14 100 Room Air 98.0 Administered Medications Medications (Trade) Dose Ordered Sig/Drake Route PRN Reason Start Time Stop Time Status Last Admin Dose Admin Acetaminophen/ Hydrocodone Bitart ([place] 10mg) 1 each STAT STAT PO 11/02/18 11:55 11/02/18 11:57 DC 11/02/18 12:06 1 EACH Aspirin (Aspirin) 325 mg STAT STAT PO 11/02/18 11:55 11/02/18 11:57 DC 11/02/18 12:06 325 MG Nitroglycerin (Nitrostat) 0.4 mg STAT STAT SL 11/02/18 11:55 11/02/18 11:57 DC 11/02/18 12:07 0.4 MG Ondansetron HCl (Zofran Odt) 4 mg STAT STAT SL 11/02/18 11:55 11/02/18 11:57 DC 11/02/18 12:07 4 MG Laboratory Tests Test 11/02/18 12:00 White Blood Count 4.9 10^3/uL (4.5-11.0) Red Blood Count 3.98 10^6/uL (4.00-5.20) L Hemoglobin 11.4 g/dL (12.0-15.0) L Hematocrit 35.7 % (36.0-46.0) L Mean Corpuscular Volume 89.7 fL (78-100) Mean Corpuscular Hemoglobin 28.6 pg (26-34) Mean Corpuscular Hemoglobin Concent 31.9 g/dL (33-37) L Red Cell Distribution Width 14.6 % (11.5-14.5) H Platelet Count 328 10^3/uL (150-400) Mean Platelet Volume 7.8 fL (7.8-11.0) Neutrophils (%) (Auto) 52.9 % (41.0-85.0) Lymphocytes (%) (Auto) 34.4 % (24.0-44.0) Monocytes (%) (Auto) 8.8 % (5.0-12.0) Neutrophils # (Auto) 2.6 10^3/uL (1.8-7.7) Lymphocytes # (Auto) 1.7 10^3/uL (1.0-4.8) Monocytes # (Auto) 0.4 10^3/uL (0.3-0.8) Absolute Immature Granulocyte (auto 0.01 10^3 u/L (0-2) Eosinophils % 3.1 % (0.0-5.0) Basophils % 0.6 % (0.0-0.2) H Basophils # 0.0 10^3/uL (0.0-0.1) Eosinophil Count 0.2 10^3/uL (0.0-0.2) Amylase Level 42 U/L (25-115) Lipase 97 U/L (114-286) L Percent Immature Gran (Cell Imm) 0.20 % (0.00-0.50) Helicobacter pylori Screen NEGATIVE (NEGATIVE) EKG/XRAY/CT/US EKG: NSR, no ST T wave changes Course Duration or Total Time Spent w: 60 mins Vitals & review Data Vital Sign - Last 24 Hours 11/02/18 11/02/18 11/02/18 11:50 11:50 11:57 Temp 98.0 98.0 98.0 98.0 98.0 98.0 Pulse 76 76 76 Resp 14 16 16 B/P (MAP) 128/73 (91) Pulse Ox 100 100 O2 Delivery Room Air Room Air Laboratory Tests Test 11/02/18 12:00 White Blood Count 4.9 10^3/uL Red Blood Count 3.98 10^6/uL Hemoglobin 11.4 g/dL Hematocrit 35.7 % Mean Corpuscular Volume 89.7 fL Mean Corpuscular Hemoglobin 28.6 pg Mean Corpuscular Hemoglobin Concent 31.9 g/dL Red Cell Distribution Width 14.6 % Platelet Count 328 10^3/uL Mean Platelet Volume 7.8 fL Neutrophils (%) (Auto) 52.9 % Lymphocytes (%) (Auto) 34.4 % Monocytes (%) (Auto) 8.8 % Neutrophils # (Auto) 2.6 10^3/uL Lymphocytes # (Auto) 1.7 10^3/uL Monocytes # (Auto) 0.4 10^3/uL Absolute Immature Granulocyte (auto 0.01 10^3 u/L Eosinophils % 3.1 % Basophils % 0.6 % Basophils # 0.0 10^3/uL Eosinophil Count 0.2 10^3/uL Amylase Level 42 U/L Lipase 97 U/L Percent Immature Gran (Cell Imm) 0.20 % Helicobacter pylori Screen NEGATIVE Sepsis Infection Criteria Pres: None O2 Sat by Pulse Oximetry: 100 Departure Time of Disposition: 15:22 Disposition: 01 HOME, SELF-CARE Impression: Primary Impression: Chest pain Additional Impression: Tenderness of chest wall Condition: Improved Referrals: SOREN KEITH PHOTOFINISHING LABORATORY WORKER (PCP) PRIMARY CARE PROVIDER Duration or Time Spent with Pa: 3 HRS Problem Qualifiers IAN SHAH MD Nov 02, 2018 12:32
[2018-11-02 12:39] LABS: ALANINE AMINOTRANSFERASE(ML) 17 U/L (12-78)
[2018-11-02] MEDS ORDERED: PREDNISONE PO STA (12:58)
[2018-11-02] MEDS ORDERED: MOTRIN PO STA (12:58)
[2018-11-02 13:00] VITALS: BP 99/70
--- NOTE | 2018-11-02 13:06 | PCM.EKG ---
[facility] Test Date: 2018-11-02 Test Time: 11:46:50 Pat Name: GREGORY RICARDO Department: Room: Gender: F Nurse Practitioner Per Diem: RT : 1970 Requested By: IAN SHAH Order Number: [id number] Reading MD: Measurements Intervals [place] Rate: 70 P: 32 [place]: 164 QRS: 41 QRSD: 78 T: 17 QT: 406 QTc: 438 Interpretive Statements Normal sinus rhythm Low voltage QRS Borderline ECG No previous ECG available for comparison Please click the below link to view image of tracing.
[2018-11-02] MEDS ORDERED: MOTRIN ONE (13:17)
[2018-11-02] MEDS ORDERED: PREDNISONE ONE (13:18)
[2018-11-02 14:00] VITALS: BP 98/67
[2018-11-02 15:00] VITALS: BP 98/65
[2018-11-02 15:43] VITALS: BP 98/65
== END 2018-11-02 15:36 | disposition home or self-care (01) ==
LOC: ER 11:37
DX: R07.89 Other chest pain (principal); R11.2 Nausea with vomiting, unspecified; R10.9 Unspecified abdominal pain; E07.9 Disorder of thyroid, unspecified; E11.9 Type 2 diabetes mellitus without complications; E78.00 Pure hypercholesterolemia, unspecified; K21.9 Gastro-esophageal reflux disease without esophagitis; I10 Essential (primary) hypertension; Z79.82 Long term (current) use of aspirin; Z79.899 Other long term (current) drug therapy; Z90.49 Acquired absence of other specified parts of digestive tract; Z90.710 Acquired absence of both cervix and uterus; Z79.84 Long term (current) use of oral hypoglycemic drugs
CPT/HCPCS: 36415; 71045; 80053; 82150; 82550 ×2; 82553; 83690; 83880; 84484 ×2; 85025; 85379; 85610; 85730; 86677; 93005; 99285; J7512; Q0162

== ENCOUNTER → 2018-11-05 | Outpatient (CLI) | payer MEDICARE, MEDICAID ==
[2018-11-05 12:27] LABS: HEMOGLOBIN 11.9 g/dL (12.0-15.0); MEAN CELL HGB 29.3 pg (26-34); MEAN CELL HGB CONCENTRATION 33.3 g/dL (33-37); MEAN CORP VOLUME 87.9 fL (78-100); MEAN PLATELET VOLUME 7.8 fL (7.8-11.0); RED CELL DISTRIBUTION WIDTH 14.4 % (11.5-14.5); WHITE BLOOD CELL 10.5 10^3/uL (4.5-11.0)
[2018-11-05 12:51] LABS: CALCIUM 9.5 mg/dL (8.4-10.5); CARBON DIOXIDE 28.6 mmol/L (20.0-32)
== END | disposition home or self-care (01) ==
LOC: LAB 12:07
PROVIDERS: ATTEND Internal Medicine Cardiovascular Disease
DX: E11.65 Type 2 diabetes mellitus with hyperglycemia (principal); I10 Essential (primary) hypertension; E78.2 Mixed hyperlipidemia; F31.4 Bipolar disorder, current episode depressed, severe, without psychotic features; I20.8 Other forms of angina pectoris; E55.9 Vitamin D deficiency, unspecified; E78.00 Pure hypercholesterolemia, unspecified; E78.5 Hyperlipidemia, unspecified; E03.8 Other specified hypothyroidism; J44.9 Chronic obstructive pulmonary disease, unspecified; K21.9 Gastro-esophageal reflux disease without esophagitis; Z79.899 Other long term (current) drug therapy
CPT/HCPCS: 36415; 80048; 80061; 80076; 84702; 85027; 85610

== ENCOUNTER → 2019-04-28 | Outpatient (CLI) | payer MEDICARE, MEDICAID ==
[~2019-04-28] MED LIST changes: +OMEP40CA41 PO; -OMEP40CA6 PO
--- NOTE | 2019-04-28 12:48 | DIREP ---
PROCEDURE:XRAY ABDOMEN SINGLE VW COMPARISON:[facility], CR, XRAY ABDOMEN 2VW, 04/14/2018, 05:51 PM. INDICATIONS:K59.00 CONSTIPATION FINDINGS: BOWEL GAS PATTERN:Normal. No excess stool visible in the colon. CALCIFICATIONS:None significant. LUNG BASES:Clear. BONES:Normal. OTHER:Surgical clips present in the right upper abdomen. No additional findings. CONCLUSION:Normal examination. Dictated by: Madi Murry M.D. on 04/28/2019 at 12:46 PM
== END | disposition home or self-care (01) ==
LOC: RAD 11:42
PROVIDERS: ATTEND Nurse Practitioner Family
DX: K59.00 Constipation, unspecified (principal)
CPT/HCPCS: 74018

== ENCOUNTER 2019-05-31 13:16 | Emergency (ER) | payer MEDICARE, MEDICAID ==
[~2019-05-31] VITALS: Ht 162.6 cm; Wt 78.9 kg
[2019-05-31 13:30] VITALS: BP 120/76
[2019-05-31] MEDS ORDERED: TORADOL IM STA (14:14)
--- NOTE | 2019-05-31 14:19 | ER.PDOC ---
General Chief Complaint: Requesting Medical Care Stated Complaint: POSS FLU TRAVEL OUT OF US: No Time seen by MD: 14:22 Source: patient Exam Limitations: no limitations History of Present Illness Timing/Duration: 24 hours Severity: mild Associated Symptoms: fever/chills, other Allergies: Coded Allergies: No Known Allergies (Unverified , 10/29/16) Home Meds Reported Medications Estradiol (ESTRADIOL) 0.5 Mg Tablet, 1 TAB PO DAILY, #30 TAB 11 Refills 04/09/18 Metoprolol Succinate (METOPROLOL SUCCINATE) 50 Mg Tab.er.24h, 1 TAB PO DAILY, #30 TAB 5 Refills 04/09/18 Duloxetine Hcl (CYMBALTA) 30 Mg Capsule.dr, 1 CAP PO BID, #30 CAP 5 Refills 04/09/18 Trazodone Hcl (TRAZODONE HCL) 100 Mg Tablet, 2 TAB PO HS, #30 TAB 1 Refill 04/09/18 Omeprazole (OMEPRAZOLE) 40 Mg Capsule.dr, 1 CAP PO DAILY, #30 CAP 3 Refills 04/09/18 Liraglutide (VICTOZA 3-SAUL) 0.6 Mg/0.1 Ml Pen.injctr, 1.8 MG SQ DAILY, #27 MILLILITER 3 Refills 04/09/18 Metformin Hcl (METFORMIN HCL) 1,000 Mg Tablet, 1 TAB PO BID, #60 TAB 5 Refills 04/09/18 Lamotrigine (LAMICTAL) 100 Mg Tablet, 1 TAB PO HS, #30 TAB 1 Refill 04/09/18 Pravastatin Sodium (PRAVASTATIN SODIUM) 40 Mg Tablet, 1 TAB PO HS, #90 TAB 1 Refill 10/19/15 Levothyroxine Sodium (LEVOTHYROXINE SODIUM) 50 Mcg Tablet, 1 TAB PO DAILY, #30 TAB 5 Refills 10/19/15 Past Medical History Surgical History: cholecystectomy, hysterectomy, other Social History Drug Use: none Reviewed Nursing Reviewed: Vital Signs, Abn. 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-XII NML as Tested Skin: Normal Color Lymphatic: No Adenopathy Results/Orders Results/Orders Orders - PABLO,IAN S MD Cbc W/O Diff (05/31/19 14:11) Urinalysis (05/31/19 14:11) Comprehensive Metabolic Panel (05/31/19 14:11) Influenza A&B (05/31/19 14:14) Ketorolac Tromethamine (Toradol) (05/31/19 14:14) Hcg Qualitative Serum (05/31/19 14:14) Ketorolac Tromethamine (Toradol) (05/31/19 14:35) Administered Medications Medications (Trade) Dose Ordered Sig/Drake Route PRN Reason Start Time Stop Time Status Last Admin Dose Admin Ketorolac Tromethamine (Toradol) 60 mg STAT STAT IM 05/31/19 14:14 05/31/19 14:17 DC 05/31/19 14:51 60 MG Laboratory Tests Test 05/31/19 14:18 White Blood Count 5.8 10^3/uL (4.5-11.0) Red Blood Count 4.06 10^6/uL (4.00-5.20) Hemoglobin 11.5 g/dL (12.0-15.0) L Hematocrit 35.4 % (36.0-46.0) L Mean Corpuscular Volume 87.2 fL (78-100) Mean Corpuscular Hemoglobin 28.3 pg (26-34) Mean Corpuscular Hemoglobin Concent 32.5 g/dL (33-37) L Red Cell Distribution Width 14.6 % (11.5-14.5) H Platelet Count 301 10^3/uL (150-400) Mean Platelet Volume 7.9 fL (7.8-11.0) Sodium Level 138 mmol/L (132-145) Potassium Level 3.4 mmol/L (3.6-5.2) L Chloride Level 101.0 mmol/L (96-109) Carbon Dioxide Level 22.7 mmol/L (20.0-32) Anion Gap 17.7 Blood Urea Nitrogen 14 mg/dL (7-18) Creatinine 0.89 mg/dL (0.59-1.40) Estimated GFR () 82.3 (>/=60) BUN/Creatinine Ratio 15.0 Glucose Level 123 mg/dL (70-110) H Calcium Level 8.3 mg/dL (8.4-10.5) L Total Bilirubin 0.2 mg/dL (0.2-1.0) Aspartate Amino Transferase (AST) 19 U/L (0-35) Alanine Aminotransferase (ALT) 14 U/L (12-78) Alkaline Phosphatase 82 U/L (50-136) Total Protein 7.1 g/dL (6.4-8.2) Albumin 3.2 g/dL (3.4-5.0) L Globulin 3.9 Serum HCG, Qualitative NEGATIVE (NEGATIVE) Course Duration or Total Time Spent w: 3 HRS Vitals & review Data Laboratory Tests Test 05/31/19 14:18 White Blood Count 5.8 10^3/uL Red Blood Count 4.06 10^6/uL Hemoglobin 11.5 g/dL Hematocrit 35.4 % Mean Corpuscular Volume 87.2 fL Mean Corpuscular Hemoglobin 28.3 pg Mean Corpuscular Hemoglobin Concent 32.5 g/dL Red Cell Distribution Width 14.6 % Platelet Count 301 10^3/uL Mean Platelet Volume 7.9 fL Sodium Level 138 mmol/L Potassium Level 3.4 mmol/L Chloride Level 101.0 mmol/L Carbon Dioxide Level 22.7 mmol/L Anion Gap 17.7 Blood Urea Nitrogen 14 mg/dL Creatinine 0.89 mg/dL Estimated GFR () 82.3 BUN/Creatinine Ratio 15.0 Glucose Level 123 mg/dL Calcium Level 8.3 mg/dL Total Bilirubin 0.2 mg/dL Aspartate Amino Transf (AST/SGOT) 19 U/L Alanine Aminotransferase (ALT/SGPT) 14 U/L Alkaline Phosphatase 82 U/L Total Protein 7.1 g/dL Albumin 3.2 g/dL Globulin 3.9 Serum HCG, Qualitative NEGATIVE Sepsis Infection Criteria Pres: None Departure Time of Disposition: 15:33 Disposition: 01 HOME, SELF-CARE Impression: Primary Impression: Otitis media Condition: Improved Referrals: SOREN KEITH BIOMEDICAL INSTRUMENT TECHNICIAN (PCP) PRIMARY CARE PROVIDER Duration or Time Spent with Pa: 30 M IAN SHAH MD May 31, 2019 14:19
[2019-05-31 14:22] LABS: HEMOGLOBIN 11.5 g/dL (12.0-15.0); MEAN CELL HGB 28.3 pg (26-34); MEAN CELL HGB CONCENTRATION 32.5 g/dL (33-37); MEAN CORP VOLUME 87.2 fL (78-100); MEAN PLATELET VOLUME 7.9 fL (7.8-11.0); RED CELL DISTRIBUTION WIDTH 14.6 % (11.5-14.5); WHITE BLOOD CELL 5.8 10^3/uL (4.5-11.0)
[2019-05-31] MEDS ORDERED: TORADOL ONE (14:35)
[2019-05-31 14:38] LABS: CALCIUM 8.3 mg/dL (8.4-10.5); CARBON DIOXIDE 22.7 mmol/L (20.0-32)
[2019-05-31 15:46] VITALS: BP 113/80
== END 2019-05-31 15:57 | disposition home or self-care (01) ==
LOC: ER 13:16
DX: H66.90 Otitis media, unspecified, unspecified ear (principal); Z79.899 Other long term (current) drug therapy; Z79.84 Long term (current) use of oral hypoglycemic drugs; Z90.710 Acquired absence of both cervix and uterus; Z90.49 Acquired absence of other specified parts of digestive tract
CPT/HCPCS: 36415; 80053; 84703; 85027; 96372; 99283; J1885

== ENCOUNTER 2019-06-18 14:57 | Emergency (ER) | payer MEDICARE, MEDICAID ==
[~2019-06-18] VITALS: Ht 162.6 cm; Wt 78.5 kg
[2019-06-18 15:44] VITALS: BP 106/65
[2019-06-18 16:34] VITALS: BP 110/70
--- NOTE | 2019-06-18 16:40 | ER.PDOC ---
General Chief Complaint: Skin Rash/Abscess Stated Complaint: RASH Time seen by MD: 16:15 Source: patient Exam Limitations: no limitations History of Present Illness Initial Comments RASH TO THE FACE AND ARMS TENDERNESS AND WARMTH, SWELLING Allergies: Coded Allergies: No Known Allergies (Unverified , 10/29/16) Home Meds Reported Medications Estradiol (ESTRADIOL) 0.5 Mg Tablet, 1 TAB PO DAILY, #30 TAB 11 Refills 04/09/18 Metoprolol Succinate (METOPROLOL SUCCINATE) 50 Mg Tab.er.24h, 1 TAB PO DAILY, #30 TAB 5 Refills 04/09/18 Duloxetine Hcl (CYMBALTA) 30 Mg Capsule.dr, 1 CAP PO BID, #30 CAP 5 Refills 04/09/18 Trazodone Hcl (TRAZODONE HCL) 100 Mg Tablet, 2 TAB PO HS, #30 TAB 1 Refill 04/09/18 Omeprazole (OMEPRAZOLE) 40 Mg Capsule.dr, 1 CAP PO DAILY, #30 CAP 3 Refills 04/09/18 Liraglutide (VICTOZA 3-SAUL) 0.6 Mg/0.1 Ml Pen.injctr, 1.8 MG SQ DAILY, #27 MILLILITER 3 Refills 04/09/18 Metformin Hcl (METFORMIN HCL) 1,000 Mg Tablet, 1 TAB PO BID, #60 TAB 5 Refills 04/09/18 Lamotrigine (LAMICTAL) 100 Mg Tablet, 1 TAB PO HS, #30 TAB 1 Refill 04/09/18 Pravastatin Sodium (PRAVASTATIN SODIUM) 40 Mg Tablet, 1 TAB PO HS, #90 TAB 1 Refill 10/19/15 Levothyroxine Sodium (LEVOTHYROXINE SODIUM) 50 Mcg Tablet, 1 TAB PO DAILY, #30 TAB 5 Refills 10/19/15 Past Medical History Medical History: diabetes, hypertension Surgical History: hysterectomy Social History Alcohol Use: none Drug Use: none Results/Orders Results/Orders Vital Signs Date Time Temp Pulse Resp B/P (MAP) Pulse Ox O2 Delivery O2 Flow Rate FiO2 06/18/19 16:34 97.5 86 18 110/70 (83) 97 Room Air 06/18/19 15:44 97.5 88 16 106/65 (79) 97 Room Air 06/18/19 15:38 97.5 88 16 97 Departure Time of Disposition: 16:44 Disposition: 01 HOME, SELF-CARE Impression: Primary Impression: Rash and nonspecific skin eruption Condition: Stable Patient Instructions: Rash, Staphylococcal Infections, Tinea Versicolor (Yeast Infection of the Skin) Referrals: SOREN KEITH INTEGRATED SPECIALIST (PCP) PRIMARY CARE PROVIDER Comments Treat new kitten with the same rash Duration or Time Spent with Pa: 20 minutes Return to Work/School Can a patient return to work?: No Can a patient return to school: No ROSA GRAVES NP Jun 18, 2019 16:40
== END 2019-06-18 17:38 | disposition home or self-care (01) ==
LOC: ER 14:57
DX: R21 Rash and other nonspecific skin eruption (principal); E11.9 Type 2 diabetes mellitus without complications; I10 Essential (primary) hypertension; Z79.899 Other long term (current) drug therapy; Z90.710 Acquired absence of both cervix and uterus; Z79.84 Long term (current) use of oral hypoglycemic drugs
CPT/HCPCS: 99281; 99283

== ENCOUNTER 2019-07-26 13:23 | Emergency (ER) | payer MEDICARE, MEDICAID ==
[~2019-07-26] VITALS: Ht 162.6 cm; Wt 77.1 kg
[2019-07-26 13:34] VITALS: BP 116/79
[2019-07-26] MEDS ORDERED: ASPIRIN PO PRN (14:00)
--- NOTE | 2019-07-26 14:00 | NUR ---
IV: IV STARTED TO R AC 20GG, X2 ATTEMPTS, USING ASEPTIC TECHNIQUE. BLOOD REMOVED AND TAKEN TO LAB. FLUSHED WITH 10ML NS. SECURED WITH TAPE AND TEGADERM. PT TOLERATED WELL.
[2019-07-26 14:04] LABS: BASOPHIL % 0.7 % (0.0-0.2); EOSINOPHIL # 0.2 10^3/uL (0.0-0.2); EOSINOPHIL % 5.3 % (0.0-5.0); LYMPHOCYTES # 1.8 10^3/uL (1.0-4.8); LYMPHOCYTES % 42.5 % (24.0-44.0); MEAN CORP HGB 27.8 pg (26-34); MONOCYTES # 0.3 10^3/uL (0.3-0.8); MONOCYTES % 6.9 % (5.0-12.0); NEUTROPHIL # 1.9 10^3/uL (1.8-7.7); NEUTROPHILS % 44.4 % (41.0-85.0); RED CELL DISTRIBUTION WIDTH 14.9 % (11.5-14.5)
[2019-07-26] MEDS ORDERED: ASPIRIN ONE (14:04)
--- NOTE | 2019-07-26 14:20 | DIREP ---
PROCEDURE:CHEST 1 VIEW COMPARISON:[facility], CR, XRAY CHEST SINGLE VW, 11/02/2018, 12:00 PM. [facility], CR, XRAY CHEST SINGLE VW, 01/14/2018, 05:39 PM. INDICATIONS:chest pain FINDINGS: LUNGS/PLEURA:No significant pulmonary parenchymal abnormalities. No effusions. VASCULATURE:Normal. Unremarkable pulmonary vasculature. CARDIAC:Normal. No cardiac silhouette abnormality or cardiomegaly. MEDIASTINUM:Normal. No visible mass or adenopathy. BONES:Normal. No fracture or visible bony lesion. OTHER:EKG leads overlie the chest. CONCLUSION:No acute cardiopulmonary abnormalities. There is no significant change as compared with the previous examination. Dictated by: Madi Murry M.D. on 07/26/2019 at 02:17 PM
[2019-07-26 14:34] LABS: ALANINE AMINOTRANSFERASE(ML) 16 U/L (12-78); ALKALINE PHOSPHATASE 70 U/L (50-136); ASPARTATE AMINO TRANSFERASE 14 U/L (0-35); CALCIUM 8.5 mg/dL (8.4-10.5); CARBON DIOXIDE 26.7 mmol/L (20.0-32); GLUCOSE 102 mg/dL (70-110)
--- NOTE | 2019-07-26 14:42 | ER.PDOC ---
General Chief Complaint: Chest Pain-Cardiac Nature Stated Complaint: CP Time seen by MD: 13:45 Source: patient History of Present Illness Initial Comments Pt reports pain just L of midline in chest, sharp, radiating to axilla at times. 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 Pt reports she gets this exact pain a couple times a month or so, has been seen by Cardiology and worked up, had neg stress as well. Denies any worsening or difference in today's episode vs. other times. Denies dyspnea, nausea, diaphoresis. Activities at Onset: none Prior CP/Workup: Non-Cardiac, Echocardiography, Stress Test (neg) Nitro Today/Relief: No Nitro Taken Today Aspirin Today: No Aspirin Today Associated Symptoms: denies symptoms Prior symptoms/Treatment: Similar symptoms previous (numerous times); No Recenly Seen Allergies: Coded Allergies: No Known Allergies (Unverified , 10/29/16) Home Meds Reported Medications Estradiol (ESTRADIOL) 0.5 Mg Tablet, 1 TAB PO DAILY, #30 TAB 11 Refills 04/09/18 Metoprolol Succinate (METOPROLOL SUCCINATE) 50 Mg Tab.er.24h, 1 TAB PO DAILY, #30 TAB 5 Refills 04/09/18 Duloxetine Hcl (CYMBALTA) 30 Mg Capsule.dr, 1 CAP PO BID, #30 CAP 5 Refills 04/09/18 Trazodone Hcl (TRAZODONE HCL) 100 Mg Tablet, 2 TAB PO HS, #30 TAB 1 Refill 04/09/18 Omeprazole (OMEPRAZOLE) 40 Mg Capsule.dr, 1 CAP PO DAILY, #30 CAP 3 Refills 04/09/18 Liraglutide (VICTOZA 3-SAUL) 0.6 Mg/0.1 Ml Pen.injctr, 1.8 MG SQ DAILY, #27 MILLILITER 3 Refills 04/09/18 Metformin Hcl (METFORMIN HCL) 1,000 Mg Tablet, 1 TAB PO BID, #60 TAB 5 Refills 04/09/18 Lamotrigine (LAMICTAL) 100 Mg Tablet, 1 TAB PO HS, #30 TAB 1 Refill 04/09/18 Pravastatin Sodium (PRAVASTATIN SODIUM) 40 Mg Tablet, 1 TAB PO HS, #90 TAB 1 Refill 10/19/15 Levothyroxine Sodium (LEVOTHYROXINE SODIUM) 50 Mcg Tablet, 1 TAB PO DAILY, #30 TAB 5 Refills 10/19/15 Past Medical History Medical History: diabetes, GERD, high cholesterol, hypertension, thyroid disea se, other Surgical History: cholecystectomy Social History Drug Use: none Constitutional: no symptoms reported EENTM: no symptoms reported Respiratory: no symptoms reported Cardiovascular: see HPI, chest pain; denies edema, denies irregular heart rate, denies lightheadedness, denies palpitations, denies syncope Gastrointestinal: no symptoms reported Genitourinary: no symptoms reported Musculoskeletal: no symptoms reported; denies back pain, denies gout, denies joint pain Skin: no symptoms reported; denies lesions Psychiatric/Neurological: no symptoms reported Endocrine: no symptoms reported All Other Systems: Reviewed and Negative Physical Exam General Appearance: No Apparent Distress, WD/WN HEENT: PERRL/EOMI, Normal ENT Inspection, TMs Normal, Pharynx Normal Neck: Non-Tender, Full Range of Motion, Supple, Normal Inspection Respiratory: chest non-tender, lungs clear, normal breath sounds, no respiratory distress, no accessory muscle use, other (discomfort to palpation L mid-sternal border) Cardiovascular: Normal Peripheral Pulses, Regular Rate, Rhythm, No Edema, No Gallop, No JVD, No Murmur Gastrointestinal: Normal Bowel Sounds, No Organomegaly, No Pulsatile Mass, Non Tender, Soft Rectal: Normal Exam Extremities: Normal Range of Motion, Non-Tender, Normal Inspection, No Pedal Edema, No Calf Tenderness, Normal Capillary Refill Neurologic/Psychiatric: No Motor/Sensory Deficits, Alert, Normal Mood/Affect, Oriented x 3 Skin: Normal Color, Warm/Dry Lymphatic: No Adenopathy Results/Orders Results/Orders Orders - MEJIA HU DO Cbc With Auto Diff (07/26/19 13:54) Comprehensive Metabolic Panel (07/26/19 13:54) Creatine Kinase (07/26/19 13:54) Creatine Kinase Mb (07/26/19 13:54) Troponin I (07/26/19 13:54) Probnp B-Type Ship Construction Teacher (07/26/19 13:54) Xr Chest 1v (07/26/19 13:54) Ekg-Routine (07/26/19 13:54) Aspirin (Aspirin) (07/26/19 14:00) Aspirin (Aspirin) (07/26/19 14:04) Troponin I (07/26/19 15:20) Vital Signs Date Time Temp Pulse Resp B/P (MAP) Pulse Ox O2 Delivery O2 Flow Rate FiO2 07/26/19 13:34 98.1 77 18 96 07/26/19 13:34 98.4 77 18 116/79 (91) 95 Room Air Laboratory Tests Test 07/26/19 14:00 White Blood Count 4.3 10^3/uL (4.5-11.0) L Red Blood Count 4.06 10^6/uL (4.00-5.20) Hemoglobin 11.3 g/dL (12.0-15.0) L Hematocrit 36.3 % (36.0-46.0) Mean Corpuscular Volume 89.4 fL (78-100) Mean Corpuscular Hemoglobin 27.8 pg (26-34) Mean Corpuscular Hemoglobin Concent 31.1 g/dL (33-37) L Red Cell Distribution Width 14.9 % (11.5-14.5) H Platelet Count 323 10^3/uL (150-400) Mean Platelet Volume 8.0 fL (7.8-11.0) Neutrophils (%) (Auto) 44.4 % (41.0-85.0) Lymphocytes (%) (Auto) 42.5 % (24.0-44.0) Monocytes (%) (Auto) 6.9 % (5.0-12.0) Neutrophils # (Auto) 1.9 10^3/uL (1.8-7.7) Lymphocytes # (Auto) 1.8 10^3/uL (1.0-4.8) Monocytes # (Auto) 0.3 10^3/uL (0.3-0.8) Absolute Immature Granulocyte (auto 0.01 10^3 u/L (0-2) Absolute Eosinophils (auto) 0.2 10^3/uL (0.0-0.2) Immature Granulocytes % 0.20 % (0.00-0.50) Eosinophils % 5.3 % (0.0-5.0) H Basophils % 0.7 % (0.0-0.2) H Basophils # 0.0 10^3/uL (0.0-0.1) Sodium Level 140 mmol/L (132-145) Potassium Level 3.9 mmol/L (3.6-5.2) Chloride Level 104.0 mmol/L (96-109) Carbon Dioxide Level 26.7 mmol/L (20.0-32) Anion Gap 13.2 Blood Urea Nitrogen 10 mg/dL (7-18) Creatinine 0.85 mg/dL (0.59-1.40) Estimated GFR () 86.7 (>/=60) Est GFR (CKD-EPI)(Non-Afr [place]er) 71.7 (>/=60) BUN/Creatinine Ratio 11.0 Glucose Level 102 mg/dL (70-110) Calcium Level 8.5 mg/dL (8.4-10.5) Total Bilirubin 0.2 mg/dL (0.2-1.0) Aspartate Amino Transferase (AST) 14 U/L (0-35) Alanine Aminotransferase (ALT) 16 U/L (12-78) Alkaline Phosphatase 70 U/L (50-136) Total Creatine Kinase 49 U/L (26-192) Creatine Kinase MB < 0.5 ng/mL (0.5-3.6) L Troponin I < 0.02 ng/mL (0.00-0.05) Pro-B-Type Natriuretic Peptide 74 pg/mL (0-125) Total Protein 6.7 g/dL (6.4-8.2) Albumin 3.6 g/dL (3.4-5.0) Globulin 3.1 Progress Progress Pt with neg enzymes x2, pain same as previous episodes deemed non-cardiac. will d/c home and have her f/u with PMD or chocolate molder. EKG/XRAY/CT/US EKG: NSR EKG Comments: rate 68, no ST elev. or depression - +baseline wander Departure Time of Disposition: 15:46 Disposition: 01 HOME, SELF-CARE Impression: Primary Impression: Chest pain Condition: Stable Referrals: SOREN KEITH [facility]IN (PCP) PRIMARY CARE PROVIDER Additional Instructions: f/u PMD or Cardio 2-3 days Duration or Time Spent with Pa: 25 Problem Qualifiers Primary Impression: Chest pain Chest pain type: unspecified Qualified Codes: R07.9 - Chest pain, unspecified MEJIA HU DO Jul 26, 2019 14:42
--- NOTE | 2019-07-26 14:56 | PCM.EKG ---
[facility] Test Date: 2019-07-26 Test Time: 14:51:35 Pat Name: GREGORY RICARDO Department: Room: Gender: F Beader: [facility] : 1970 Requested By: MEJIA HU Order Number: [id number] Reading MD: Measurements Intervals [place] Rate: 68 P: 52 IN: 167 QRS: 34 QRSD: 83 T: 7 QT: 400 QTc: 426 Interpretive Statements Sinus rhythm Abnormal R-wave progression, early transition Borderline T abnormalities, anterior leads Minimal ST elevation, inferior leads Compared to ECG 11/02/2018 11:46:50 T-wave abnormality now present ST (T wave) deviation now present Please click the below link to view image of tracing.
[2019-07-26 15:46] VITALS: BP 100/69
== END 2019-07-26 15:51 | disposition home or self-care (01) ==
LOC: ER 13:23
DX: R07.89 Other chest pain (principal); E07.9 Disorder of thyroid, unspecified; E11.9 Type 2 diabetes mellitus without complications; E78.00 Pure hypercholesterolemia, unspecified; K21.9 Gastro-esophageal reflux disease without esophagitis; I10 Essential (primary) hypertension; Z79.899 Other long term (current) drug therapy; Z90.49 Acquired absence of other specified parts of digestive tract
CPT/HCPCS: 36415; 71045; 80053; 82550; 82553; 83880; 84484; 85025; 93005; 99283; 99284

== ENCOUNTER → 2019-08-24 | Outpatient (CLI) | payer MEDICARE, MEDICAID ==
[~2019-08-24] MED LIST changes: -TRAZ-131 PO; +TRAZ-168 PO
[2019-08-24 14:26] LABS: BASOPHIL # 0.1 10^3/uL (0.0-0.1); BASOPHIL % 0.9 % (0.0-0.2); EOSINOPHIL # 0.3 10^3/uL (0.0-0.2); EOSINOPHIL % 5.8 % (0.0-5.0); LYMPHOCYTES # 2.35 10^3/uL1 (1.0-4.8); LYMPHOCYTES % 44.1 % (24.0-44.0); MEAN CORP HGB 27.6 pg (26-34); MONOCYTES # 0.3 10^3/uL (0.3-0.8); MONOCYTES % 5.6 % (5.0-12.0); NEUTROPHIL # 2.3 10^3/uL (1.8-7.7); NEUTROPHILS % 43.6 % (41.0-85.0); PLATELET COUNT 296 10^3/uL (150-400); RED CELL DISTRIBUTION WIDTH 14.5 % (11.5-14.5)
[2019-08-24 14:45] LABS: CARBON DIOXIDE 31.3 mmol/L (20.0-32)
[2019-08-24 14:46] LABS: CALCIUM 8.6 mg/dL (8.4-10.5)
--- NOTE | 2019-08-24 14:57 | DIREP ---
PROCEDURE:XR ABDOMEN 2 VIEWS COMPARISON:[facility], CR, XRAY ABDOMEN SINGLE VW, 04/28/2019, 11:51 AM. INDICATIONS:R10.12 LUQ PAIN TECHNIQUE:Flat and upright views of the abdomen are provided. FINDINGS: BOWEL GAS PATTERN:Mild amounts of retained gas and fecal matter in the colon. No small bowel obstruction is seen. Status post cholecystectomy. CALCIFICATIONS:None significant. The renal and the psoas muscle outlines are not visualized. Phleboliths in the pelvis. The urinary bladder is well distended. LUNG BASES:Clear. BONES:Normal. OTHER:No additional findings. CONCLUSION:Nonspecific and nonobstructive bowel gas pattern. Suggest CT if clinically indicated. Dictated by: Jarret Boss MD on 08/24/2019 at 02:53 PM
== END | disposition home or self-care (01) ==
LOC: LAB 14:12
PROVIDERS: ATTEND Nurse Practitioner Family
DX: R11.2 Nausea with vomiting, unspecified (principal); R10.12 Left upper quadrant pain
CPT/HCPCS: 36415; 74019; 80053; 85025